=== PATIENT | male | born 1995 | race Caucasian/White ===

== ENCOUNTER 2020-01-27 15:24 | Inpatient (IN) | payer SELFPAY ==
[2020-01-27] MEDS ORDERED: Sodium Chloride 0.9% 10 ML Syringe FLUSH PRN (15:29)
[2020-01-27] MEDS ORDERED: Sodium Chloride 0.9% 2.5 ML Syringe FLUSH PRN (15:29)
[2020-01-27 15:56] LABS: ACETAMINOPHEN <2.0 ug/mL
[2020-01-27 16:01] LABS: BLOOD UREA NITROGEN,BUN 8 mg/dL (7.0-18.0); CARBON DIOXIDE,CO2 21.9 mmol/L (21.0-32.0); CHLORIDE,CL 109 mmol/L (98-107); GLUCOSE RANDOM 101 mg/dL (74-106); POTASSIUM,K 3.8 mmol/L (3.5-5.1); SODIUM,NA 147 mmol/L (136-148)
--- NOTE | 2020-01-27 16:31 | CT ---
Head CT Technique: Multiple axial sections through the brain were obtained. Intravenous contrast was not utilized. Findings: Ventricles along with basal cisterns and sulci over the convexities are within normal limits for the patient's age. No evidence of intracranial hemorrhage. No midline shift or mass-effect is seen. No abnormal parenchymal densities are seen. No evidence of intracranial hemorrhage. No midline shift or mass-effect is seen. 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 No acute paranasal sinus findings are seen. Mastoid sinus is also show nothing acute. No acute calvarial abnormality is appreciated. Impression: 1. Nothing acute is appreciated on noncontrast head CT exam. Diagnostic code #2 This report was dictated in MDT
--- NOTE | 2020-01-27 16:31 | CR ---
Chest: AP view of the chest was obtained. Comparison: No previous chest imaging is available for comparison. Heart size and mediastinum are normal. Lungs are clear. Bony structures shows minimal scoliosis within the spine. Impression: 1. Nothing acute is appreciated on frontal chest x-ray. Diagnostic code #2 This report was dictated in MDT
--- NOTE | 2020-01-27 17:21 | EDM.PDOC ---
ED HPI GENERAL MEDICAL PROBLEM - General Chief Complaint: Drug or Alcohol Abuse Stated Complaint: POSS OVERDOSE Time Seen by Provider: 01/27/20 15:27 Source of Information: Reports: EMS History Limitations: Reports: Altered Mental Status - History of Present Illness INITIAL COMMENTS - FREE TEXT/NARRATIVE: This patient is a 24-year-old male with no known medical history presenting with altered mental status. 911 was called by his significant other. She reports that he was drinking alcohol heavily earlier and made suicidal comments , but there was no report of any intentional ingestion other than ethanol. The significant other was concerned because the patient seemed to have slow or shallow breathing so she called the ambulance. She did chest compressions prior to EMS arrival. When paramedics arrived, the patient did have a pulse and was breathing normally, there is no report of any apnea or cyanosis from EMS. Blood sugar was reportedly normal. EMS noted mild tachycardia but otherwise normal vital signs. The patient was found lying on the floor in front of a chair. No report of any trauma. Patient arrives with altered mental status, unable to participate in the interview. Treatments PLATFORM POWER TECHNICIAN: Reports: IV/IO, Other (see below) Other Treatments PLATFORM POWER TECHNICIAN: NS 100mls - Related Data Allergies Allergy/AdvReac Type Severity Reaction Status Date / Time Unable to Assess Allergy Unverified 01/27/20 15:40 Home Meds: Home Meds . [Unable to Verify Home Med List] 01/27/20 [History] Past Medical History - Past Health History Medical/Surgical History: Denies Medical/Surgical History Social & Family History - Family History Family Medical History: Unobtainable ED ROS GENERAL - Review of Systems Review Of Systems: Unable To Obtain Reason Not Obtained: Due to altered mental status - Physical Exam Exam: See Below Text/Narrative:: Vital signs reviewed. Nursing notes reviewed. Constitutional: Sleepy but awakens to voice. Head: Normocephalic, atraumatic. Eyes: EOMI, conjunctiva normal, no discharge, no scleral icterus. No nystagmus. Ears, Nose, Throat: External ears and nose normal, moist oral mucosa. Cardiovascular: Tachycardic, 2+ radial pulse, capillary refill less than 2 seconds. Pulmonary: normal work of breathing, no accessory muscle use. CTA BL Abdomen/GI: Soft, nontender, nondistended, no guarding or rigidity, no masses. Musculoskeletal: No deformities. Integumentary: Appropriate color for ethnicity, warm, dry, no pallor or jaundice , no rash. Neurologic: Awakens to voice, slurred speech, one-word answers. Moving all extremities well but slowly. No gross neurologic deficits. No tremor. Psychiatric: Unable to assess EKG INTERPRETATION EKG Interpretation Comments: 12-Lead ECG Interpretation Acquired: 6:24 PM Rhythm: Sinus tachycardia Rate: 107/min Warner: Normal Intervals: Normal Ectopy: None Ischemic Changes: None apparent RV Strain: No obvious RV strain pattern. ST Segments/T-Waves: No notable changes Interpretation: Unremarkable Course - Vital Signs Text/Narrative:: 24-year-old male presenting with altered mental status. Patient mildly tachycardic, but [hemodynamically stable, afebrile], well- appearing, looks nontoxic. Differential diagnosis includes but is not limited to: Alcohol intoxication, illicit drug use, electrolyte disturbance, head trauma, stroke, intracranial hemorrhage, renal failure, uremia, psychosis, postictal state, sepsis, meningitis etc. On arrival the patient was markedly altered but protecting his airway. Immediately moved to a stretcher, monitor equipment attached. IV access was established and labs were sent. CBC shows mild thrombocytopenia. Normal INR. Venous blood gas shows elevated PO2 and slightly low CO2. Metabolic panel shows mild hypochloremia, normal creatinine. Normal hepatic markers. Normal troponin. Urinalysis is bland. Negative acetaminophen and salicylate levels. Negative drug screen. Ethanol is markedly elevated at 489. Lactate is normal. Patient was given a small fluid bolus. His mental status improved over several hours and he was able to engage in conversation. He denies attempting to kill himself and states that he is not suicidal and has no plan for self-harm. He admits to drinking alcohol earlier but denies any medication ingestion or illegal drug use. Patient was initially calm and cooperative and we plan to admit him to the hospital. He then became increasingly belligerent and agitated , attempting to remove his monitor equipment and his Giles catheter. We administered IV haloperidol which initially calmed him for a short while and then became increasingly agitated and attempted to leave again. Legal status hold was signed for severe intoxication, concern for cardiovascular emergency potentially life-threatening arrhythmia requiring bystander CPR, and suicidal statements. Patient was given a dose of IV ketamine with good relief and adequate calming. Patient remained in the ED through the end of my shift signed out in person to Dr. Guerrier awaiting admission to the ICU. Last Recorded V/S: Last Vital Signs Temp 36.4 C 01/27/20 15:26 Pulse 107 H 01/27/20 19:32 Resp 19 01/27/20 19:32 BP 129/75 01/27/20 19:32 Pulse Ox 94 L 01/27/20 19:32 - Orders/Labs/Meds Orders: Active Orders 24 hr Category Date Time Status Capnography Monitoring [RT End Tidal CO2 Monitoring] [ Care 01/27/20 15:31 Active RC] ASDIRECTED Initiate/Renew Non-Violent Restraints (All Ages) Q24H Care 01/27/20 19:00 Ordered Initiate/Renew Non-Violent Restraints (All Ages) Q24H Care 01/28/20 19:00 Ordered Nrsg Assess Restraint Init/Mon [Nrsg Assess Restraint Care 01/27/20 19:20 Active Init/Mon] [RC] ASDIRECTED Nrsg Assess Restraint Init/Mon [RC] Q15M Care 01/27/20 19:03 Active Suicide Precautions [RC] ASDIRECTED Care 01/27/20 15:45 Active Lactated Ringers [Ringers, Lactated] 1,000 ml Med 01/27/20 18:45 Active IV ASDIRECTED Sodium Chloride 0.9% [Normal Saline] Med 01/27/20 15:29 Active 10 ml IV ASDIRECTED PRN Sodium Chloride 0.9% [Saline Flush] Med 01/27/20 15:29 Active 10 ml FLUSH ASDIRECTED PRN Sodium Chloride 0.9% [Saline Flush] Med 01/27/20 15:29 Active 2.5 ml FLUSH ASDIRECTED PRN Peripheral IV Insertion Adult [OM.PC] Stat Oth 01/27/20 15:29 Ordered Medication Orders Lactated Ringer's (Ringers, Lactated) 1,000 mls @ 999 mls/hr IV ASDIRECTED MARTELL Last Admin: 01/27/20 18:33 Dose: 999 mls/hr Sodium Chloride (Saline Flush) 10 ml FLUSH ASDIRECTED PRN PRN Reason: Keep Vein Open Last Admin: 01/27/20 19:06 Dose: 10 ml Sodium Chloride (Saline Flush) 2.5 ml FLUSH ASDIRECTED PRN PRN Reason: Keep Vein Open Last Admin: 01/27/20 19:06 Dose: 2.5 ml Sodium Chloride (Normal Saline) 10 ml IV ASDIRECTED PRN PRN Reason: IV Use Labs: Laboratory Tests 01/27/20 01/27/20 01/27/20 Range/Units 15:20 15:20 15:29 WBC 5.57 (4.0-11.0) K/uL RBC 4.87 (4.50-5.90) M/uL Hgb 15.0 (13.0-17.0) g/dL Hct 44.1 (38.0-50.0) % MCV 90.6 (80.0-98.0) fL MCH 30.8 (27.0-32.0) pg MCHC 34.0 (31.0-37.0) g/dL RDW Std Deviation 43.2 (28.0-62.0) fl RDW Coeff of [place] 13 (11.0-15.0) % Plt Count 129 L (150-400) K/uL MPV 8.50 (7.40-12.00) fL Neut % (Auto) 44.8 L (48.0-80.0) % Lymph % (Auto) 40.6 H (16.0-40.0) % Ramsey % (Auto) 7.9 (0.0-15.0) % Eos % (Auto) 6.5 (0.0-7.0) % Baso % (Auto) 0.2 (0.0-1.5) % Neut # (Auto) 2.5 (1.4-5.7) K/uL Lymph # (Auto) 2.3 (0.6-2.4) K/uL Ramsey # (Auto) 0.4 (0.0-0.8) K/uL Eos # (Auto) 0.4 (0.0-0.7) K/uL Baso # (Auto) 0.0 (0.0-0.1) K/uL Nucleated RBC % 0.0 /100WBC Nucleated RBCs # 0 K/uL INR VBG pH (7.31-7.41) VBG pCO2 (35-45) mmHG VBG pO2 (30-40) mmHG VBG HCO3 (22-30) mEq/L VBG Total CO2 (41-51) mmol/L VBG Base Excess (-3.0-3.0) Lactate (0.20-2.00) mmol/L Sodium (136-148) mmol/L Potassium (3.5-5.1) mmol/L Chloride (98-107) mmol/L Carbon Dioxide (21.0-32.0) mmol/L BUN (7.0-18.0) mg/dL Creatinine (0.8-1.3) mg/dL Est Cr Clr Drug Dosing Estimated GFR (MDRD) ml/min Glucose (74-106) mg/dL Calcium (8.5-10.1) mg/dL Total Bilirubin (0.2-1.0) mg/dL AST (15-37) IU/L ALT (14-63) IU/L Alkaline Phosphatase (46-116) U/L Troponin I (0.000-0.056) ng/mL Total Protein (6.4-8.2) g/dL Albumin (3.4-5.0) g/dL Globulin (2.6-4.0) g/dL Albumin/Globulin Ratio (0.9-1.6) Urine Color YELLOW Urine Appearance CLEAR Urine pH 5.0 (5.0-8.0) Ur Specific [place] <= 1.005 (1.001-1.035) Urine Protein NEGATIVE (NEGATIVE) mg/dL Urine Glucose (UA) NEGATIVE (NEGATIVE) mg/dL Urine Ketones NEGATIVE (NEGATIVE) mg/dL Urine Occult Blood NEGATIVE (NEGATIVE) Urine Nitrite NEGATIVE (NEGATIVE) Urine Bilirubin NEGATIVE (NEGATIVE) Urine Urobilinogen 0.2 (<2.0) EU/dL Ur Leukocyte Esterase NEGATIVE (NEGATIVE) Salicylates (0-20) mg/dL Urine Opiates Screen NEGATIVE (NEGATIVE) Ur Oxycodone Screen NEGATIVE (NEGATIVE) Urine Methadone Screen NEGATIVE (NEGATIVE) Acetaminophen ug/mL Ur Barbiturates Screen NEGATIVE (NEGATIVE) Ur Phencyclidine Scrn NEGATIVE (NEGATIVE) Ur Amphetamine Screen NEGATIVE (NEGATIVE) U Methamphetamines Scrn NEGATIVE (NEGATIVE) U Benzodiazepines Scrn NEGATIVE (NEGATIVE) U Cocaine Metab Screen NEGATIVE (NEGATIVE) U Marijuana (THC) Screen NEGATIVE (NEGATIVE) Ethyl Alcohol mg/dL 01/27/20 01/27/20 01/27/20 Range/Units 15:29 15:29 15:29 WBC (4.0-11.0) K/uL RBC (4.50-5.90) M/uL Hgb (13.0-17.0) g/dL Hct (38.0-50.0) % MCV (80.0-98.0) fL MCH (27.0-32.0) pg MCHC (31.0-37.0) g/dL RDW Std Deviation (28.0-62.0) fl RDW Coeff of Jailene (11.0-15.0) % Plt Count (150-400) K/uL MPV (7.40-12.00) fL Neut % (Auto) (48.0-80.0) % Lymph % (Auto) (16.0-40.0) % Ramsey % (Auto) (0.0-15.0) % Eos % (Auto) (0.0-7.0) % Baso % (Auto) (0.0-1.5) % Neut # (Auto) (1.4-5.7) K/uL Lymph # (Auto) (0.6-2.4) K/uL Ramsey # (Auto) (0.0-0.8) K/uL Eos # (Auto) (0.0-0.7) K/uL Baso # (Auto) (0.0-0.1) K/uL Nucleated RBC % /100WBC Nucleated RBCs # K/uL INR 0.98 VBG pH (7.31-7.41) VBG pCO2 (35-45) mmHG VBG pO2 (30-40) mmHG VBG HCO3 (22-30) mEq/L VBG Total CO2 (41-51) mmol/L VBG Base Excess (-3.0-3.0) Lactate 2.0 (0.20-2.00) mmol/L Sodium 147 (136-148) mmol/L Potassium 3.8 (3.5-5.1) mmol/L Chloride 109 H (98-107) mmol/L Carbon Dioxide 21.9 (21.0-32.0) mmol/L BUN 8 (7.0-18.0) mg/dL Creatinine 0.9 (0.8-1.3) mg/dL Est Cr Clr Drug Dosing TNP Estimated GFR (MDRD) > 60.0 ml/min Glucose 101 (74-106) mg/dL Calcium 7.8 L (8.5-10.1) mg/dL Total Bilirubin 0.2 (0.2-1.0) mg/dL AST 28 (15-37) IU/L ALT 33 (14-63) IU/L Alkaline Phosphatase 102 (46-116) U/L Troponin I < 0.050 (0.000-0.056) ng/mL Total Protein 8.1 (6.4-8.2) g/dL Albumin 4.0 (3.4-5.0) g/dL Globulin 4.1 H (2.6-4.0) g/dL Albumin/Globulin Ratio 1.0 (0.9-1.6) Urine Color Urine Appearance Urine pH (5.0-8.0) Ur Specific [place] (1.001-1.035) Urine Protein (NEGATIVE) mg/dL Urine Glucose (UA) (NEGATIVE) mg/dL Urine Ketones (NEGATIVE) mg/dL Urine Occult Blood (NEGATIVE) Urine Nitrite (NEGATIVE) Urine Bilirubin (NEGATIVE) Urine Urobilinogen (<2.0) EU/dL Ur Leukocyte Esterase (NEGATIVE) Salicylates 1.5 (0-20) mg/dL Urine Opiates Screen (NEGATIVE) Ur Oxycodone Screen (NEGATIVE) Urine Methadone Screen (NEGATIVE) Acetaminophen <2.0 ug/mL Ur Barbiturates Screen (NEGATIVE) Ur Phencyclidine Scrn (NEGATIVE) Ur Amphetamine Screen (NEGATIVE) U Methamphetamines Scrn (NEGATIVE) U Benzodiazepines Scrn (NEGATIVE) U Cocaine Metab Screen (NEGATIVE) U Marijuana (THC) Screen (NEGATIVE) Ethyl Alcohol 489 mg/dL 01/27/20 01/27/20 Range/Units 15:29 17:37 WBC (4.0-11.0) K/uL RBC (4.50-5.90) M/uL Hgb (13.0-17.0) g/dL Hct (38.0-50.0) % MCV (80.0-98.0) fL MCH (27.0-32.0) pg MCHC (31.0-37.0) g/dL RDW Std Deviation (28.0-62.0) fl RDW Coeff of Jailene (11.0-15.0) % Plt Count (150-400) K/uL MPV (7.40-12.00) fL Neut % (Auto) (48.0-80.0) % Lymph % (Auto) (16.0-40.0) % Ramsey % (Auto) (0.0-15.0) % Eos % (Auto) (0.0-7.0) % Baso % (Auto) (0.0-1.5) % Neut # (Auto) (1.4-5.7) K/uL Lymph # (Auto) (0.6-2.4) K/uL Ramsey # (Auto) (0.0-0.8) K/uL Eos # (Auto) (0.0-0.7) K/uL Baso # (Auto) (0.0-0.1) K/uL Nucleated RBC % /100WBC Nucleated RBCs # K/uL INR VBG pH 7.36 (7.31-7.41) VBG pCO2 40 (35-45) mmHG VBG pO2 145 H (30-40) mmHG VBG HCO3 23 (22-30) mEq/L VBG Total CO2 20 L (41-51) mmol/L VBG Base Excess -2.6 (-3.0-3.0) Lactate 1.4 (0.20-2.00) mmol/L Sodium (136-148) mmol/L Potassium (3.5-5.1) mmol/L Chloride (98-107) mmol/L Carbon Dioxide (21.0-32.0) mmol/L BUN (7.0-18.0) mg/dL Creatinine (0.8-1.3) mg/dL Est Cr Clr Drug Dosing Estimated GFR (MDRD) ml/min Glucose (74-106) mg/dL Calcium (8.5-10.1) mg/dL Total Bilirubin (0.2-1.0) mg/dL AST (15-37) IU/L ALT (14-63) IU/L Alkaline Phosphatase (46-116) U/L Troponin I (0.000-0.056) ng/mL Total Protein (6.4-8.2) g/dL Albumin (3.4-5.0) g/dL Globulin (2.6-4.0) g/dL Albumin/Globulin Ratio (0.9-1.6) Urine Color Urine Appearance Urine pH (5.0-8.0) Ur Specific [place] (1.001-1.035) Urine Protein (NEGATIVE) mg/dL Urine Glucose (UA) (NEGATIVE) mg/dL Urine Ketones (NEGATIVE) mg/dL Urine Occult Blood (NEGATIVE) Urine Nitrite (NEGATIVE) Urine Bilirubin (NEGATIVE) Urine Urobilinogen (<2.0) EU/dL Ur Leukocyte Esterase (NEGATIVE) Salicylates (0-20) mg/dL Urine Opiates Screen (NEGATIVE) Ur Oxycodone Screen (NEGATIVE) Urine Methadone Screen (NEGATIVE) Acetaminophen ug/mL Ur Barbiturates Screen (NEGATIVE) Ur Phencyclidine Scrn (NEGATIVE) Ur Amphetamine Screen (NEGATIVE) U Methamphetamines Scrn (NEGATIVE) U Benzodiazepines Scrn (NEGATIVE) U Cocaine Metab Screen (NEGATIVE) U Marijuana (THC) Screen (NEGATIVE) Ethyl Alcohol mg/dL Meds: Medications Generic Name Dose Route Start Last Admin Trade Name Freq PRN Reason Stop Dose Admin Lactated Ringer's 1,000 mls @ 999 mls/hr 01/27/20 18:45 01/27/20 18:33 Ringers, Lactated IV 999 mls/hr ASDIRECTED MARTELL Administration Sodium Chloride 10 ml 01/27/20 15:29 01/27/20 19:06 Saline Flush FLUSH 10 ml ASDIRECTED PRN Administration Keep Vein Open Sodium Chloride 2.5 ml 01/27/20 15:29 01/27/20 19:06 Saline Flush FLUSH 2.5 ml ASDIRECTED PRN Administration Keep Vein Open Sodium Chloride 10 ml 01/27/20 15:29 Normal Saline IV ASDIRECTED PRN IV Use Discontinued Medications Generic Name Dose Route Start Last Admin Trade Name Freq PRN Reason Stop Dose Admin Haloperidol Lactate Confirm 01/27/20 18:20 01/27/20 18:39 Haldol Administered 01/27/20 18:21 Not Given Dose 10 mg .ROUTE .STK-MED ONE Haloperidol Lactate 10 mg 01/27/20 18:31 01/27/20 18:35 Haldol IM 01/27/20 18:32 10 mg ONETIME ONE Administration Ketamine HCl 50 mg 01/27/20 18:50 01/27/20 19:00 Ketalar IV 01/27/20 18:51 50 mg ONETIME ONE Administration Departure - Departure Time of Disposition: 19:00 Disposition: Refer to Observation Condition: Good Clinical Impression: Acute encephalopathy - Discharge Information Critical Care Note - Critical Care Note Total Time (mins): 60 Comments: Critical care time is exclusive of billable procedures and the time to perform these procedures. Critical care time was used to prevent vital system organ failure and deterioration. Critical care time includes bedside management and high-complexity decision making requiring my highest level of mental preparedness and attention. This includes reviewing the patient's chart and prior medical records, ordering and reviewing interpreting laboratory studies and imaging results, interpretation of vital signs and EKG, pulse oximetry, and discussion with the admitting team along with EMS and nursing staff. Critical care time for acute toxic encephalopathy severe agitation requiring multiple rounds of IV sedation with haloperidol and ketamine, serial neurologic reassessments, restraint application. Interpretation of labs and EKG and radiology studies. Discussions with EMS personnel, nursing, and hospitalist. Admission to intensive care unit for close monitoring. Sepsis Event Note - Evaluation Sepsis Screening Result: No Definite Risk - Focused Exam Vital Signs: Vital Signs Temp Pulse Resp BP Pulse Ox 01/27/20 19:10 121 H 19 127/74 95 01/27/20 19:00 110 H 20 124/71 96 01/27/20 16:15 94 14 121/78 97 01/27/20 16:00 93 14 117/78 97 01/27/20 15:45 92 14 116/79 97 01/27/20 15:26 36.4 C 112 H 13 127/85 95 Date Exam was Performed: 01/27/20 Time Exam was Performed: 19:40 - My Orders Last 24 Hours: My Active Orders 01/27/20 15:29 Sodium Chloride 0.9% [Normal Saline] 10 ml IV ASDIRECTED PRN Sodium Chloride 0.9% [Saline Flush] 10 ml FLUSH ASDIRECTED PRN Sodium Chloride 0.9% [Saline Flush] 2.5 ml FLUSH ASDIRECTED PRN Peripheral IV Insertion Adult [OM.PC] Stat 01/27/20 15:31 Capnography Monitoring [RT End Tidal CO2 Monitoring] [RC] ASDIRECTED 01/27/20 15:45 Suicide Precautions [RC] ASDIRECTED 01/27/20 18:45 Lactated Ringers [Ringers, Lactated] 1,000 ml IV ASDIRECTED 01/27/20 19:00 Initiate/Renew Non-Violent Restraints (All Ages) Q24H 01/27/20 19:03 Nrsg Assess Restraint Init/Mon [RC] Q15M 01/27/20 19:20 Nrsg Assess Restraint Init/Mon [Nrsg Assess Restraint Init/Mon] [RC] ASDIRECTED 01/28/20 19:00 Initiate/Renew Non-Violent Restraints (All Ages) Q24H - Assessment/Plan Last 24 Hours: My Active Orders 01/27/20 15:29 Sodium Chloride 0.9% [Normal Saline] 10 ml IV ASDIRECTED PRN Sodium Chloride 0.9% [Saline Flush] 10 ml FLUSH ASDIRECTED PRN Sodium Chloride 0.9% [Saline Flush] 2.5 ml FLUSH ASDIRECTED PRN Peripheral IV Insertion Adult [OM.PC] Stat 01/27/20 15:31 Capnography Monitoring [RT End Tidal CO2 Monitoring] [RC] ASDIRECTED 01/27/20 15:45 Suicide Precautions [RC] ASDIRECTED 01/27/20 18:45 Lactated Ringers [Ringers, Lactated] 1,000 ml IV ASDIRECTED 01/27/20 19:00 Initiate/Renew Non-Violent Restraints (All Ages) Q24H 01/27/20 19:03 Nrsg Assess Restraint Init/Mon [RC] Q15M 01/27/20 19:20 Nrsg Assess Restraint Init/Mon [Nrsg Assess Restraint Init/Mon] [RC] ASDIRECTED 01/28/20 19:00 Initiate/Renew Non-Violent Restraints (All Ages) Q24H
[2020-01-27] MEDS ORDERED: Haloperidol Lactate 5 MG/ML SDV ONE (18:20)
[2020-01-27] MEDS ORDERED: Haloperidol Lactate 5 MG/ML SDV IM ONE (18:31)
[2020-01-27] MEDS ORDERED: Lactated Ringers 1,000 ML IV SCH (18:45)
[2020-01-27] MEDS ORDERED: Ketamine 500 mg/10 ML MDV IV ONE (18:50)
[2020-01-27] MEDS ORDERED: Ondansetron 4 MG/2 ML SDV IVPUSH PRN (19:41)
[2020-01-27] MEDS ORDERED: Albuterol/Ipratropium 3.0-0.5 MG/3 ML Neb Soln NEB PRN (19:41)
[2020-01-27] MEDS ORDERED: MVI, Adult with Vitamin K 10 ML, Thiamine 100 MG, Folic Acid 1 MG in Sodium Chloride 0.... IV ONE ×4 (19:44)
[2020-01-27] MEDS ORDERED: Enoxaparin 40 MG/0.4 ML Syringe SUBCUT SCH (19:45)
[2020-01-27] MEDS ORDERED: LORazepam 2 MG/ML SDV IVPUSH PRN (19:45)
[2020-01-27] MEDS ORDERED: Haloperidol Lactate 5 MG/ML SDV IM PRN ×2 (19:46→19:49)
[2020-01-27] MEDS ORDERED: diphenhydrAMINE 50 MG/ML SDV IVPUSH PRN (19:49)
--- NOTE | 2020-01-27 19:50 | PCM.HP.2 ---
H&P History of Present Illness - General Date of Service: 01/27/20 Admit Problem/Dx: Admission Diagnosis/Problem Admission Diagnosis/Problem Acute encephalopathy - History of Present Illness Initial Comments - Free Text/Narative: Patient is a 24-year-old male with no known medical history presenting with altered mental status. Reportedly his GF called aftershe found him unresponsive. She reported to EMS that he was drinking alcohol heavily earlier and made suicidal comments, but there was no report of any intentional ingestion other than ethanol. GF performed chest compressions prior to EMS arrival due to concern of "shallow breathing" Its not clear if pulse was lost or not. When paramedics arrived, Patients pulse was normal with normal breathing, there is no report of any apnea or cyanosis from EMS. Blood sugar was reportedly normal. No report of any trauma. Patient arrives with altered mental status, most of his labs were relatively normal except for BAL was >400, CTscan head was unremarkable, CXR was unremarkable, EKG showed no ischemic changes. UDS was negative. Patient did become very agitated and wanted to leave in ER and was given ketamine for sedation and was committed by ER physician. 1 :1 was started. Patient was admitted to hospital for alcohol intoxication management. Patient was seen by me , by that time he was oriented and calm and he denied any SI or HI and stated he was depressed earlier due to passing of his family member and was grieving. He has no intention of hurting himself. - Related Data Allergies/Adverse Reactions: Allergies Allergy/AdvReac Type Severity Reaction Status Date / Time No Known Allergies Allergy Verified 01/28/20 01:20 Home Medications: Home Meds Folic Acid 1 mg PO DAILY 30 Days #30 tablet 01/28/20 [Rx] Thiamine [Vitamin B-1] 100 mg PO DAILY #30 tablet 01/28/20 [Rx] Past Medical History - Past Health History Medical/Surgical History: Denies Medical/Surgical History Social & Family History - Family History Family Medical History: Unobtainable H&P Review of Systems - Review of Systems: Review Of Systems: See Below General: Reports: Fatigue. Denies: Fever, Chills, Malaise, Weakness, Night Sweats HEENT: Denies: Dysphasia, Ear Pain Pulmonary: Denies: Shortness of Breath, Wheezing Cardiovascular: Denies: Chest Pain, Palpitations, Dyspnea on Exertion Gastrointestinal: Denies: Abdominal Pain, Anorexia, Black Stool Genitourinary: Denies: Dysuria, Frequency, Burning Musculoskeletal: Denies: Neck Pain, Shoulder Pain Skin: Denies: Cyanosis, Jaundice, Mottled Neurological: Reports: Confusion, Headache. Denies: Paresthesia, Seizure, Syncope, Tingling, Change in Speech Hematologic/Lymphatic: Denies: Anemia, Easy Bleeding Exam - Exam Exam: See Below - Vital Signs Vital Signs: Last Vital Signs Temp 36.2 C 01/27/20 19:42 Pulse 102 H 01/27/20 19:42 Resp 17 01/27/20 19:42 BP 113/61 01/27/20 19:42 Pulse Ox 93 L 01/27/20 19:42 Weight: 68.039 kg - Exam Quality Assessment: Supplemental Oxygen General: Alert, Oriented, Cooperative HEENT: Conjunctiva Clear Neck: Supple, Trachea Midline Lungs: Clear to Auscultation, Normal Respiratory Effort Cardiovascular: Regular Rate, Regular Rhythm, Normal S1 GI/Abdominal Exam: Normal Bowel Sounds, Soft, Non-Tender Peripheral Pulses: 3+: Dorsalis Pedis (L), Dorsalis Pedis (R) Skin: Warm, Dry Neurological: Cranial Nerves Intact, Normal Tone, Sensation Intact Neuro Extensive - Mental Status: Alert, Oriented x3 - Patient Data Lab Results Last 24 hrs: Laboratory Results - last 24 hr 01/27/20 01/27/20 01/27/20 Range/Units 15:20 15:20 15:29 WBC 5.57 (4.0-11.0) K/uL RBC 4.87 (4.50-5.90) M/uL Hgb 15.0 (13.0-17.0) g/dL Hct 44.1 (38.0-50.0) % MCV 90.6 (80.0-98.0) fL MCH 30.8 (27.0-32.0) pg MCHC 34.0 (31.0-37.0) g/dL RDW Std Deviation 43.2 (28.0-62.0) fl RDW Coeff of Jailene 13 (11.0-15.0) % Plt Count 129 L (150-400) K/uL MPV 8.50 (7.40-12.00) fL Neut % (Auto) 44.8 L (48.0-80.0) % Lymph % (Auto) 40.6 H (16.0-40.0) % Pitt % (Auto) 7.9 (0.0-15.0) % Eos % (Auto) 6.5 (0.0-7.0) % Baso % (Auto) 0.2 (0.0-1.5) % Neut # (Auto) 2.5 (1.4-5.7) K/uL Lymph # (Auto) 2.3 (0.6-2.4) K/uL Pitt # (Auto) 0.4 (0.0-0.8) K/uL Eos # (Auto) 0.4 (0.0-0.7) K/uL Baso # (Auto) 0.0 (0.0-0.1) K/uL Nucleated RBC % 0.0 /100WBC Nucleated RBCs # 0 K/uL INR VBG pH (7.31-7.41) VBG pCO2 (35-45) mmHG VBG pO2 (30-40) mmHG VBG HCO3 (22-30) mEq/L VBG Total CO2 (41-51) mmol/L VBG Base Excess (-3.0-3.0) Lactate (0.20-2.00) mmol/L Sodium (136-148) mmol/L Potassium (3.5-5.1) mmol/L Chloride (98-107) mmol/L Carbon Dioxide (21.0-32.0) mmol/L BUN (7.0-18.0) mg/dL Creatinine (0.8-1.3) mg/dL Est Cr Clr Drug Dosing Estimated GFR (MDRD) ml/min Glucose (74-106) mg/dL Calcium (8.5-10.1) mg/dL Total Bilirubin (0.2-1.0) mg/dL AST (15-37) IU/L ALT (14-63) IU/L Alkaline Phosphatase (46-116) U/L Troponin I (0.000-0.056) ng/mL Total Protein (6.4-8.2) g/dL Albumin (3.4-5.0) g/dL Globulin (2.6-4.0) g/dL Albumin/Globulin Ratio (0.9-1.6) Urine Color YELLOW Urine Appearance CLEAR Urine pH 5.0 (5.0-8.0) Ur Specific [place] <= 1.005 (1.001-1.035) Urine Protein NEGATIVE (NEGATIVE) mg/dL Urine Glucose (UA) NEGATIVE (NEGATIVE) mg/dL Urine Ketones NEGATIVE (NEGATIVE) mg/dL Urine Occult Blood NEGATIVE (NEGATIVE) Urine Nitrite NEGATIVE (NEGATIVE) Urine Bilirubin NEGATIVE (NEGATIVE) Urine Urobilinogen 0.2 (<2.0) EU/dL Ur Leukocyte Esterase NEGATIVE (NEGATIVE) Salicylates (0-20) mg/dL Urine Opiates Screen NEGATIVE (NEGATIVE) Ur Oxycodone Screen NEGATIVE (NEGATIVE) Urine Methadone Screen NEGATIVE (NEGATIVE) Acetaminophen ug/mL Ur Barbiturates Screen NEGATIVE (NEGATIVE) Ur Phencyclidine Scrn NEGATIVE (NEGATIVE) Ur Amphetamine Screen NEGATIVE (NEGATIVE) U Methamphetamines Scrn NEGATIVE (NEGATIVE) U Benzodiazepines Scrn NEGATIVE (NEGATIVE) U Cocaine Metab Screen NEGATIVE (NEGATIVE) U Marijuana (THC) Screen NEGATIVE (NEGATIVE) Ethyl Alcohol mg/dL 01/27/20 01/27/20 01/27/20 Range/Units 15:29 15:29 15:29 WBC (4.0-11.0) K/uL RBC (4.50-5.90) M/uL Hgb (13.0-17.0) g/dL Hct (38.0-50.0) % MCV (80.0-98.0) fL MCH (27.0-32.0) pg MCHC (31.0-37.0) g/dL RDW Std Deviation (28.0-62.0) fl RDW Coeff of Jailene (11.0-15.0) % Plt Count (150-400) K/uL MPV (7.40-12.00) fL Neut % (Auto) (48.0-80.0) % Lymph % (Auto) (16.0-40.0) % Pitt % (Auto) (0.0-15.0) % Eos % (Auto) (0.0-7.0) % Baso % (Auto) (0.0-1.5) % Neut # (Auto) (1.4-5.7) K/uL Lymph # (Auto) (0.6-2.4) K/uL Pitt # (Auto) (0.0-0.8) K/uL Eos # (Auto) (0.0-0.7) K/uL Baso # (Auto) (0.0-0.1) K/uL Nucleated RBC % /100WBC Nucleated RBCs # K/uL INR 0.98 VBG pH (7.31-7.41) VBG pCO2 (35-45) mmHG VBG pO2 (30-40) mmHG VBG HCO3 (22-30) mEq/L VBG Total CO2 (41-51) mmol/L VBG Base Excess (-3.0-3.0) Lactate 2.0 (0.20-2.00) mmol/L Sodium 147 (136-148) mmol/L Potassium 3.8 (3.5-5.1) mmol/L Chloride 109 H (98-107) mmol/L Carbon Dioxide 21.9 (21.0-32.0) mmol/L BUN 8 (7.0-18.0) mg/dL Creatinine 0.9 (0.8-1.3) mg/dL Est Cr Clr Drug Dosing TNP Estimated GFR (MDRD) > 60.0 ml/min Glucose 101 (74-106) mg/dL Calcium 7.8 L (8.5-10.1) mg/dL Total Bilirubin 0.2 (0.2-1.0) mg/dL AST 28 (15-37) IU/L ALT 33 (14-63) IU/L Alkaline Phosphatase 102 (46-116) U/L Troponin I < 0.050 (0.000-0.056) ng/mL Total Protein 8.1 (6.4-8.2) g/dL Albumin 4.0 (3.4-5.0) g/dL Globulin 4.1 H (2.6-4.0) g/dL Albumin/Globulin Ratio 1.0 (0.9-1.6) Urine Color Urine Appearance Urine pH (5.0-8.0) Ur Specific [place] (1.001-1.035) Urine Protein (NEGATIVE) mg/dL Urine Glucose (UA) (NEGATIVE) mg/dL Urine Ketones (NEGATIVE) mg/dL Urine Occult Blood (NEGATIVE) Urine Nitrite (NEGATIVE) Urine Bilirubin (NEGATIVE) Urine Urobilinogen (<2.0) EU/dL Ur Leukocyte Esterase (NEGATIVE) Salicylates 1.5 (0-20) mg/dL Urine Opiates Screen (NEGATIVE) Ur Oxycodone Screen (NEGATIVE) Urine Methadone Screen (NEGATIVE) Acetaminophen <2.0 ug/mL Ur Barbiturates Screen (NEGATIVE) Ur Phencyclidine Scrn (NEGATIVE) Ur Amphetamine Screen (NEGATIVE) U Methamphetamines Scrn (NEGATIVE) U Benzodiazepines Scrn (NEGATIVE) U Cocaine Metab Screen (NEGATIVE) U Marijuana (THC) Screen (NEGATIVE) Ethyl Alcohol 489 mg/dL 01/27/20 01/27/20 Range/Units 15:29 17:37 WBC (4.0-11.0) K/uL RBC (4.50-5.90) M/uL Hgb (13.0-17.0) g/dL Hct (38.0-50.0) % MCV (80.0-98.0) fL MCH (27.0-32.0) pg MCHC (31.0-37.0) g/dL RDW Std Deviation (28.0-62.0) fl RDW Coeff of Jailene (11.0-15.0) % Plt Count (150-400) K/uL MPV (7.40-12.00) fL Neut % (Auto) (48.0-80.0) % Lymph % (Auto) (16.0-40.0) % Pitt % (Auto) (0.0-15.0) % Eos % (Auto) (0.0-7.0) % Baso % (Auto) (0.0-1.5) % Neut # (Auto) (1.4-5.7) K/uL Lymph # (Auto) (0.6-2.4) K/uL Pitt # (Auto) (0.0-0.8) K/uL Eos # (Auto) (0.0-0.7) K/uL Baso # (Auto) (0.0-0.1) K/uL Nucleated RBC % /100WBC Nucleated RBCs # K/uL INR VBG pH 7.36 (7.31-7.41) VBG pCO2 40 (35-45) mmHG VBG pO2 145 H (30-40) mmHG VBG HCO3 23 (22-30) mEq/L VBG Total CO2 20 L (41-51) mmol/L VBG Base Excess -2.6 (-3.0-3.0) Lactate 1.4 (0.20-2.00) mmol/L Sodium (136-148) mmol/L Potassium (3.5-5.1) mmol/L Chloride (98-107) mmol/L Carbon Dioxide (21.0-32.0) mmol/L BUN (7.0-18.0) mg/dL Creatinine (0.8-1.3) mg/dL Est Cr Clr Drug Dosing Estimated GFR (MDRD) ml/min Glucose (74-106) mg/dL Calcium (8.5-10.1) mg/dL Total Bilirubin (0.2-1.0) mg/dL AST (15-37) IU/L ALT (14-63) IU/L Alkaline Phosphatase (46-116) U/L Troponin I (0.000-0.056) ng/mL Total Protein (6.4-8.2) g/dL Albumin (3.4-5.0) g/dL Globulin (2.6-4.0) g/dL Albumin/Globulin Ratio (0.9-1.6) Urine Color Urine Appearance Urine pH (5.0-8.0) Ur Specific [place] (1.001-1.035) Urine Protein (NEGATIVE) mg/dL Urine Glucose (UA) (NEGATIVE) mg/dL Urine Ketones (NEGATIVE) mg/dL Urine Occult Blood (NEGATIVE) Urine Nitrite (NEGATIVE) Urine Bilirubin (NEGATIVE) Urine Urobilinogen (<2.0) EU/dL Ur Leukocyte Esterase (NEGATIVE) Salicylates (0-20) mg/dL Urine Opiates Screen (NEGATIVE) Ur Oxycodone Screen (NEGATIVE) Urine Methadone Screen (NEGATIVE) Acetaminophen ug/mL Ur Barbiturates Screen (NEGATIVE) Ur Phencyclidine Scrn (NEGATIVE) Ur Amphetamine Screen (NEGATIVE) U Methamphetamines Scrn (NEGATIVE) U Benzodiazepines Scrn (NEGATIVE) U Cocaine Metab Screen (NEGATIVE) U Marijuana (THC) Screen (NEGATIVE) Ethyl Alcohol mg/dL Result Diagrams: 01/28/20 05:55 01/28/20 05:55 Sepsis Event Note - Evaluation Sepsis Screening Result: No Definite Risk - Focused Exam Vital Signs: Vital Signs Temp Pulse Resp BP Pulse Ox 01/27/20 19:42 36.2 C 102 H 17 113/61 93 L 01/27/20 19:32 107 H 19 129/75 94 L 01/27/20 19:22 116 H 20 131/77 94 L 01/27/20 19:10 121 H 19 127/74 95 01/27/20 19:00 110 H 20 124/71 96 01/27/20 16:15 94 14 121/78 97 01/27/20 16:00 93 14 117/78 97 01/27/20 15:45 92 14 116/79 97 01/27/20 15:26 36.4 C 112 H 13 127/85 95 Date Exam was Performed: 01/29/20 Time Exam was Performed: 23:40 - Problem List (1) Alcohol intoxication SNOMED Code(s): 01312657 ICD Code: F10.929 - ALCOHOL USE, UNSPECIFIED WITH INTOXICATION, UNSPECIFIED Status: Acute (2) AMS (altered mental status) SNOMED Code(s): 745305683 ICD Code: R41.82 - ALTERED MENTAL STATUS, UNSPECIFIED Status: Acute Problem List Initiated/Reviewed/Updated: Yes Orders Last 24hrs: Active Orders 24 hr Category Date Time Status Admission Status [Patient Status] [ADT] Routine ADT 01/27/20 19:22 Active Ambulate [RC] ASDIRECTED Care 01/27/20 19:41 Ordered Antiembolic Devices [RC] PER UNIT ROUTINE Care 01/27/20 19:43 Ordered Capnography Monitoring [RT End Tidal CO2 Monitoring] [ Care 01/27/20 15:31 Active RC] ASDIRECTED Initiate/Renew Non-Violent Restraints (All Ages) Q24H Care 01/27/20 19:00 Ordered Initiate/Renew Non-Violent Restraints (All Ages) Q24H Care 01/28/20 19:00 Ordered Nrsg Assess Restraint Init/Mon [Nrsg Assess Restraint Care 01/27/20 19:20 Active Init/Mon] [RC] ASDIRECTED Nrsg Assess Restraint Init/Mon [RC] Q15M Care 01/27/20 19:03 Active Oxygen Therapy [RC] PRN Care 01/27/20 19:41 Ordered RT Aerosol Therapy [RC] ASDIRECTED Care 01/27/20 19:43 Ordered Suicide Precautions [RC] ASDIRECTED Care 01/27/20 15:45 Active VTE/DVT Education [RC] PER UNIT ROUTINE Care 01/27/20 19:41 Ordered Vital Signs [RC] Q2H Care 01/27/20 19:41 Ordered Nothing per Oral Now Diet [DIET] Diet 01/27/20 Dinner Ordered Albuterol/Ipratropium [DuoNeb 3.0-0.5 MG/3 ML] Med 01/27/20 19:41 Ordered 3 ml NEB Q4HRRT PRN Enoxaparin [Lovenox] Med 01/27/20 19:45 Ordered 40 mg SUBCUT Q24H Haloperidol Lactate [Haldol] Med 01/27/20 19:49 Ordered 5 mg IM Q8H PRN LORazepam [Ativan] Med 01/27/20 19:45 Ordered See Protocol IVPUSH Q4H PRN Lactated Ringers @ 125 MLS/HR(1000ml) Med 01/27/20 19:45 Ordered Lactated Ringers [Ringers, Lactated] 1,000 ml IV ASDIRECTED Lactated Ringers [Ringers, Lactated] 1,000 ml Med 01/27/20 18:45 Active IV ASDIRECTED MVI, Adult with Vitamin K [Infuvite Adult] 10 ml Med 01/27/20 19:44 Ordered Thiamine [Vitamin B-1] 100 mg Folic Acid 1 mg Sodium Chloride 0.9% [Normal Saline] 1,000 ml IV ONETIME Ondansetron [Zofran] Med 01/27/20 19:41 Ordered 4 mg IVPUSH Q4H PRN Pantoprazole [ProTONIX IV] Med 01/27/20 21:00 Ordered 40 mg IV Q12HR Sodium Chloride 0.9% [Normal Saline] Med 01/27/20 15:29 Active 10 ml IV ASDIRECTED PRN Sodium Chloride 0.9% [Saline Flush] Med 01/27/20 15:29 Active 10 ml FLUSH ASDIRECTED PRN Sodium Chloride 0.9% [Saline Flush] Med 01/27/20 15:29 Active 2.5 ml FLUSH ASDIRECTED PRN diphenhydrAMINE [Benadryl] Med 01/27/20 19:49 Ordered 50 mg IVPUSH Q8H PRN Peripheral IV Insertion Adult [OM.PC] Stat Oth 01/27/20 15:29 Ordered Sequential Compression Device [OM.PC] Per Unit Routine Oth 01/27/20 19:42 Ordered Medication Orders Albuterol/Ipratropium (Duoneb 3.0-0.5 Mg/3 Ml) 3 ml NEB Q4HRRT PRN PRN Reason: Shortness Of Breath/wheezing Diphenhydramine HCl (Benadryl) 50 mg IVPUSH Q8H PRN PRN Reason: Agitation Enoxaparin Sodium (Lovenox) 40 mg SUBCUT Q24H MARTELL Haloperidol Lactate (Haldol) 5 mg IM Q8H PRN PRN Reason: Agitation Lactated Ringer's (Ringers, Lactated) 1,000 mls @ 999 mls/hr IV ASDIRECTED [facility] Last Admin: 01/27/20 18:33 Dose: 999 mls/hr Lactated Ringer's (Ringers, Lactated) 1,000 mls @ 125 mls/hr IV ASDIRECTED [facility] Multivitamins/Minerals 10 ml/Thiamine HCl 100 mg/ Folic Acid 1 mg/ Sodium Chloride 1,011.2 mls @ 999 mls/hr IV ONETIME ONE Stop: 01/27/20 20:44 Lorazepam (Ativan) 0 mg IVPUSH Q4H PRN; Protocol PRN Reason: Withdrawal Symptoms Ondansetron HCl (Zofran) 4 mg IVPUSH Q4H PRN PRN Reason: Nausea/Vomiting Pantoprazole Sodium (Protonix Iv) 40 mg IV Q12HR [facility] Sodium Chloride (Saline Flush) 10 ml FLUSH ASDIRECTED PRN PRN Reason: Keep Vein Open Last Admin: 01/27/20 19:06 Dose: 10 ml Sodium Chloride (Saline Flush) 2.5 ml FLUSH ASDIRECTED PRN PRN Reason: Keep Vein Open Last Admin: 01/27/20 19:06 Dose: 2.5 ml Sodium Chloride (Normal Saline) 10 ml IV ASDIRECTED PRN PRN Reason: IV Use Assessment/Plan Comment:: 24 y/o M admitted for alcohol intoxication Admit to ICU for close monitoring Start IV fluids for hydration Start thiamine and folic acid Ativan per [facility] protocol Monitor and replete electrolytes Cont 1:1 for now , denied SI/HI Haldol PRN agitation along with Benadryl Lovenox for DVT ppx Monitor platelets, watch for bleeding PPI for GI ppx
[2020-01-27] MEDS: Lactated Ringers 1,000 ML IV SCH (21:42)
[2020-01-27] MEDS: Pantoprazole 40 MG Vial IV SCH (21:45)
[2020-01-27] MEDS: Sodium Chloride 0.9% 10 ML SDV IV PRN (21:45)
--- NOTE | 2020-01-27 22:42 | PN ---
THC Physician - Brief Progress [id number]/06/2020 22:25[facility] Shashi wills, MARGARITA - RICHIE (MICHAEL) - ANI YOUNG.Date of Service 01/27/2020 22:25HPI/Events of Note 24 YEAR OLD male admitted with alcohol abuse and suicidal ideation,was given haloperidol and k etamine in EDon camera awake but gesxhsZD587/MIN,BP108/66,SPO2 94%RA,PI89Iucegxs level 489platelet [address] no acute changesChest xray no acUTE changesplan:-1:1 observation(discussed with RN as patien t had suicidal ideation)-watch for alcohol withdrawal-correct electrolytes as neededDVT/Stress ulcer prophylaxsisInterventions Major-Delirium, psychosis, severe agitation - evaluation and managementInt ermediate-Thrombocytopenia - evaluation and management
[2020-01-28] MEDS: Lactated Ringers 1,000 ML IV SCH (05:47)
[2020-01-28 06:54] LABS: BLOOD UREA NITROGEN,BUN 7 mg/dL (7.0-18.0); CARBON DIOXIDE,CO2 25.4 mmol/L (21.0-32.0); CHLORIDE,CL 108 mmol/L (98-107); GLUCOSE RANDOM 84 mg/dL (74-106); POTASSIUM,K 3.4 mmol/L (3.5-5.1); SODIUM,NA 145 mmol/L (136-148)
[2020-01-28] MEDS ORDERED: Magnesium Sulfate (4.06 MEQ/ML) 1 GM/2 ML SDV IM ONE (07:43)
--- NOTE | 2020-01-28 07:50 | PN ---
THC Physician - Brief Progress [id number]/07/2020 07:36[facility] Shashi wills [place] - RICHIE [facility] - ANI YOUNGDate of Service 01/28/2020 07:36HPI/Events of Note potassium 3.4Mag 1.3plan:potassium chloride 40 meq orally BID for 1 dayMagnesium sulfate 1gm IV PB once over 120minsInterventions Major-Electrolyte abnormality - evaluation and managementElectronic ally Signed by: Tawanna LAGUNA) on 01/28/2020 07:50
[2020-01-28] MEDS ORDERED: Magnesium Sulfate/Water 1 GM in Premix Bag 1 BAG IV ONE (08:00)
[2020-01-28] MEDS: Sodium Chloride 0.9% 10 ML SDV IV PRN (08:45)
[2020-01-28] MEDS: Pantoprazole 40 MG Vial IV SCH (08:45)
[2020-01-28] MEDS ORDERED: Potassium Chloride 20 MEQ Tab.ER PO SCH (09:00)
[2020-01-28] MEDS ORDERED: Thiamine 100 MG Tab PO SCH (09:00)
[2020-01-28] MEDS ORDERED: Folic Acid 1 MG Tab PO SCH (09:00)
--- NOTE | 2020-01-28 10:57 | PCM.DCSUM1 ---
Discharge Summary - Hospital Course Diagnosis: Stroke: No - Discharge Data Discharge Date: 01/28/20 Discharge Disposition: Home, Self-Care 01 Condition: Stable - Referral to Home Health Primary Care Physician: PCP None - Discharge Diagnosis/Problem(s) (1) Alcohol intoxication SNOMED Code(s): 05947017 ICD Code: F10.929 - ALCOHOL USE, UNSPECIFIED WITH INTOXICATION, UNSPECIFIED Status: Acute Current Visit: Yes (2) AMS (altered mental status) SNOMED Code(s): 072747310 ICD Code: R41.82 - ALTERED MENTAL STATUS, UNSPECIFIED Status: Acute Current Visit: Yes - Discharge Plan *PRESCRIPTION DRUG MONITORING PROGRAM REVIEWED*: Not Applicable *COPY OF PRESCRIPTION DRUG MONITORING REPORT IN PATIENT [place]: Not Applicable Prescriptions/Med Rec: Folic Acid 1 mg PO DAILY 30 Days #30 tablet Thiamine [Vitamin B-1] 100 mg PO DAILY #30 tablet Home Medications: Home Meds Folic Acid 1 mg PO DAILY 30 Days #30 tablet 01/28/20 [Rx] Thiamine [Vitamin B-1] 100 mg PO DAILY #30 tablet 01/28/20 [Rx] Forms: ED Department Discharge Referrals: PCP,None [Primary Care Provider] - - Patient Data Vitals - Most Recent: Last Vital Signs Temp 36.5 C 01/28/20 08:00 Pulse 102 H 01/27/20 19:52 Resp 16 01/28/20 09:00 BP 127/76 01/28/20 09:00 Pulse Ox 92 L 01/28/20 09:00 Weight - Most Recent: 74.072 kg I&O - Last 24 hours: Intake & Output 01/27/20 01/28/20 01/28/20 22:59 06:59 14:59 Intake Total 1011 1450 25 Output Total 1825 Balance 1011 -375 25 Lab Results - Last 24 hrs: Laboratory Results - last 24 hr 01/27/20 01/27/20 01/27/20 Range/Units 15:20 15:20 15:29 WBC 5.57 (4.0-11.0) K/uL RBC 4.87 (4.50-5.90) M/uL Hgb 15.0 (13.0-17.0) g/dL Hct 44.1 (38.0-50.0) % MCV 90.6 (80.0-98.0) fL MCH 30.8 (27.0-32.0) pg MCHC 34.0 (31.0-37.0) g/dL RDW Std Deviation 43.2 (28.0-62.0) fl RDW Coeff of Jailene 13 (11.0-15.0) % Plt Count 129 L (150-400) K/uL MPV 8.50 (7.40-12.00) fL Neut % (Auto) 44.8 L (48.0-80.0) % Lymph % (Auto) 40.6 H (16.0-40.0) % [place] % (Auto) 7.9 (0.0-15.0) % Eos % (Auto) 6.5 (0.0-7.0) % Baso % (Auto) 0.2 (0.0-1.5) % Neut # (Auto) 2.5 (1.4-5.7) K/uL Lymph # (Auto) 2.3 (0.6-2.4) K/uL [place] # (Auto) 0.4 (0.0-0.8) K/uL Eos # (Auto) 0.4 (0.0-0.7) K/uL Baso # (Auto) 0.0 (0.0-0.1) K/uL Nucleated RBC % 0.0 /100WBC Nucleated RBCs # 0 K/uL INR VBG pH (7.31-7.41) VBG pCO2 (35-45) mmHG VBG pO2 (30-40) mmHG VBG HCO3 (22-30) mEq/L VBG Total CO2 (41-51) mmol/L VBG Base Excess (-3.0-3.0) Lactate (0.20-2.00) mmol/L Sodium (136-148) mmol/L Potassium (3.5-5.1) mmol/L Chloride (98-107) mmol/L Carbon Dioxide (21.0-32.0) mmol/L BUN (7.0-18.0) mg/dL Creatinine (0.8-1.3) mg/dL Est Cr Clr Drug Dosing Estimated GFR (MDRD) ml/min Glucose (74-106) mg/dL Calcium (8.5-10.1) mg/dL Phosphorus (2.6-4.7) mg/dL Magnesium (1.8-2.4) mg/dL Total Bilirubin (0.2-1.0) mg/dL AST (15-37) IU/L ALT (14-63) IU/L Alkaline Phosphatase (46-116) U/L Troponin I (0.000-0.056) ng/mL Total Protein (6.4-8.2) g/dL Albumin (3.4-5.0) g/dL Globulin (2.6-4.0) g/dL Albumin/Globulin Ratio (0.9-1.6) Urine Color YELLOW Urine Appearance CLEAR Urine pH 5.0 (5.0-8.0) Ur Specific [place] <= 1.005 (1.001-1.035) Urine Protein NEGATIVE (NEGATIVE) mg/dL Urine Glucose (UA) NEGATIVE (NEGATIVE) mg/dL Urine Ketones NEGATIVE (NEGATIVE) mg/dL Urine Occult Blood NEGATIVE (NEGATIVE) Urine Nitrite NEGATIVE (NEGATIVE) Urine Bilirubin NEGATIVE (NEGATIVE) Urine Urobilinogen 0.2 (<2.0) EU/dL Ur Leukocyte Esterase NEGATIVE (NEGATIVE) Salicylates (0-20) mg/dL Urine Opiates Screen NEGATIVE (NEGATIVE) Ur Oxycodone Screen NEGATIVE (NEGATIVE) Urine Methadone Screen NEGATIVE (NEGATIVE) Acetaminophen ug/mL Ur Barbiturates Screen NEGATIVE (NEGATIVE) Ur Phencyclidine Scrn NEGATIVE (NEGATIVE) Ur Amphetamine Screen NEGATIVE (NEGATIVE) U Methamphetamines Scrn NEGATIVE (NEGATIVE) U Benzodiazepines Scrn NEGATIVE (NEGATIVE) U Cocaine Metab Screen NEGATIVE (NEGATIVE) U Marijuana (THC) Screen NEGATIVE (NEGATIVE) Ethyl Alcohol mg/dL 01/27/20 01/27/20 01/27/20 Range/Units 15:29 15:29 15:29 WBC (4.0-11.0) K/uL RBC (4.50-5.90) M/uL Hgb (13.0-17.0) g/dL Hct (38.0-50.0) % MCV (80.0-98.0) fL MCH (27.0-32.0) pg MCHC (31.0-37.0) g/dL RDW Std Deviation (28.0-62.0) fl RDW Coeff of Jailene (11.0-15.0) % Plt Count (150-400) K/uL MPV (7.40-12.00) fL Neut % (Auto) (48.0-80.0) % Lymph % (Auto) (16.0-40.0) % [place] % (Auto) (0.0-15.0) % Eos % (Auto) (0.0-7.0) % Baso % (Auto) (0.0-1.5) % Neut # (Auto) (1.4-5.7) K/uL Lymph # (Auto) (0.6-2.4) K/uL [place] # (Auto) (0.0-0.8) K/uL Eos # (Auto) (0.0-0.7) K/uL Baso # (Auto) (0.0-0.1) K/uL Nucleated RBC % /100WBC Nucleated RBCs # K/uL INR 0.98 VBG pH (7.31-7.41) VBG pCO2 (35-45) mmHG VBG pO2 (30-40) mmHG VBG HCO3 (22-30) mEq/L VBG Total CO2 (41-51) mmol/L VBG Base Excess (-3.0-3.0) Lactate 2.0 (0.20-2.00) mmol/L Sodium 147 (136-148) mmol/L Potassium 3.8 (3.5-5.1) mmol/L Chloride 109 H (98-107) mmol/L Carbon Dioxide 21.9 (21.0-32.0) mmol/L BUN 8 (7.0-18.0) mg/dL Creatinine 0.9 (0.8-1.3) mg/dL Est Cr Clr Drug Dosing TNP Estimated GFR (MDRD) > 60.0 ml/min Glucose 101 (74-106) mg/dL Calcium 7.8 L (8.5-10.1) mg/dL Phosphorus (2.6-4.7) mg/dL Magnesium (1.8-2.4) mg/dL Total Bilirubin 0.2 (0.2-1.0) mg/dL AST 28 (15-37) IU/L ALT 33 (14-63) IU/L Alkaline Phosphatase 102 (46-116) U/L Troponin I < 0.050 (0.000-0.056) ng/mL Total Protein 8.1 (6.4-8.2) g/dL Albumin 4.0 (3.4-5.0) g/dL Globulin 4.1 H (2.6-4.0) g/dL Albumin/Globulin Ratio 1.0 (0.9-1.6) Urine Color Urine Appearance Urine pH (5.0-8.0) Ur Specific [place] (1.001-1.035) Urine Protein (NEGATIVE) mg/dL Urine Glucose (UA) (NEGATIVE) mg/dL Urine Ketones (NEGATIVE) mg/dL Urine Occult Blood (NEGATIVE) Urine Nitrite (NEGATIVE) Urine Bilirubin (NEGATIVE) Urine Urobilinogen (<2.0) EU/dL Ur Leukocyte Esterase (NEGATIVE) Salicylates 1.5 (0-20) mg/dL Urine Opiates Screen (NEGATIVE) Ur Oxycodone Screen (NEGATIVE) Urine Methadone Screen (NEGATIVE) Acetaminophen <2.0 ug/mL Ur Barbiturates Screen (NEGATIVE) Ur Phencyclidine Scrn (NEGATIVE) Ur Amphetamine Screen (NEGATIVE) U Methamphetamines Scrn (NEGATIVE) U Benzodiazepines Scrn (NEGATIVE) U Cocaine Metab Screen (NEGATIVE) U Marijuana (THC) Screen (NEGATIVE) Ethyl Alcohol 489 mg/dL 01/27/20 01/27/20 01/27/20 Range/Units 15:29 17:37 20:23 WBC (4.0-11.0) K/uL RBC (4.50-5.90) M/uL Hgb (13.0-17.0) g/dL Hct (38.0-50.0) % MCV (80.0-98.0) fL MCH (27.0-32.0) pg MCHC (31.0-37.0) g/dL RDW Std Deviation (28.0-62.0) fl RDW Coeff of Jailene (11.0-15.0) % Plt Count (150-400) K/uL MPV (7.40-12.00) fL Neut % (Auto) (48.0-80.0) % Lymph % (Auto) (16.0-40.0) % [place] % (Auto) (0.0-15.0) % Eos % (Auto) (0.0-7.0) % Baso % (Auto) (0.0-1.5) % Neut # (Auto) (1.4-5.7) K/uL Lymph # (Auto) (0.6-2.4) K/uL [place] # (Auto) (0.0-0.8) K/uL Eos # (Auto) (0.0-0.7) K/uL Baso # (Auto) (0.0-0.1) K/uL Nucleated RBC % /100WBC Nucleated RBCs # K/uL INR VBG pH 7.36 (7.31-7.41) VBG pCO2 40 (35-45) mmHG VBG pO2 145 H (30-40) mmHG VBG HCO3 23 (22-30) mEq/L VBG Total CO2 20 L (41-51) mmol/L VBG Base Excess -2.6 (-3.0-3.0) Lactate 1.4 (0.20-2.00) mmol/L Sodium (136-148) mmol/L Potassium (3.5-5.1) mmol/L Chloride (98-107) mmol/L Carbon Dioxide (21.0-32.0) mmol/L BUN (7.0-18.0) mg/dL Creatinine (0.8-1.3) mg/dL Est Cr Clr Drug Dosing Estimated GFR (MDRD) ml/min Glucose (74-106) mg/dL Calcium (8.5-10.1) mg/dL Phosphorus (2.6-4.7) mg/dL Magnesium (1.8-2.4) mg/dL Total Bilirubin (0.2-1.0) mg/dL AST (15-37) IU/L ALT (14-63) IU/L Alkaline Phosphatase (46-116) U/L Troponin I < 0.050 (0.000-0.056) ng/mL Total Protein (6.4-8.2) g/dL Albumin (3.4-5.0) g/dL Globulin (2.6-4.0) g/dL Albumin/Globulin Ratio (0.9-1.6) Urine Color Urine Appearance Urine pH (5.0-8.0) Ur Specific [place] (1.001-1.035) Urine Protein (NEGATIVE) mg/dL Urine Glucose (UA) (NEGATIVE) mg/dL Urine Ketones (NEGATIVE) mg/dL Urine Occult Blood (NEGATIVE) Urine Nitrite (NEGATIVE) Urine Bilirubin (NEGATIVE) Urine Urobilinogen (<2.0) EU/dL Ur Leukocyte Esterase (NEGATIVE) Salicylates (0-20) mg/dL Urine Opiates Screen (NEGATIVE) Ur Oxycodone Screen (NEGATIVE) Urine Methadone Screen (NEGATIVE) Acetaminophen ug/mL Ur Barbiturates Screen (NEGATIVE) Ur Phencyclidine Scrn (NEGATIVE) Ur Amphetamine Screen (NEGATIVE) U Methamphetamines Scrn (NEGATIVE) U Benzodiazepines Scrn (NEGATIVE) U Cocaine Metab Screen (NEGATIVE) U Marijuana (THC) Screen (NEGATIVE) Ethyl Alcohol mg/dL 01/28/20 01/28/20 Range/Units 05:55 05:55 WBC 6.01 (4.0-11.0) K/uL RBC 4.37 L (4.50-5.90) M/uL Hgb 13.3 (13.0-17.0) g/dL Hct 39.6 (38.0-50.0) % MCV 90.6 (80.0-98.0) fL MCH 30.4 (27.0-32.0) pg MCHC 33.6 (31.0-37.0) g/dL RDW Std Deviation 43.0 (28.0-62.0) fl RDW Coeff of Jailene 13 (11.0-15.0) % Plt Count 98 L (150-400) K/uL MPV 8.80 (7.40-12.00) fL Neut % (Auto) 59.7 (48.0-80.0) % Lymph % (Auto) 26.8 (16.0-40.0) % [place] % (Auto) 9.3 (0.0-15.0) % Eos % (Auto) 4.0 (0.0-7.0) % Baso % (Auto) 0.2 (0.0-1.5) % Neut # (Auto) 3.6 (1.4-5.7) K/uL Lymph # (Auto) 1.6 (0.6-2.4) K/uL [place] # (Auto) 0.6 (0.0-0.8) K/uL Eos # (Auto) 0.2 (0.0-0.7) K/uL Baso # (Auto) 0.0 (0.0-0.1) K/uL Nucleated RBC % 0.0 /100WBC Nucleated RBCs # 0 K/uL INR VBG pH (7.31-7.41) VBG pCO2 (35-45) mmHG VBG pO2 (30-40) mmHG VBG HCO3 (22-30) mEq/L VBG Total CO2 (41-51) mmol/L VBG Base Excess (-3.0-3.0) Lactate (0.20-2.00) mmol/L Sodium 145 (136-148) mmol/L Potassium 3.4 L (3.5-5.1) mmol/L Chloride 108 H (98-107) mmol/L Carbon Dioxide 25.4 (21.0-32.0) mmol/L BUN 7 (7.0-18.0) mg/dL Creatinine 0.7 L (0.8-1.3) mg/dL Est Cr Clr Drug Dosing 156.07 Estimated GFR (MDRD) > 60.0 ml/min Glucose 84 (74-106) mg/dL Calcium 7.6 L (8.5-10.1) mg/dL Phosphorus 2.7 (2.6-4.7) mg/dL Magnesium 1.3 L (1.8-2.4) mg/dL Total Bilirubin (0.2-1.0) mg/dL AST (15-37) IU/L ALT (14-63) IU/L Alkaline Phosphatase (46-116) U/L Troponin I (0.000-0.056) ng/mL Total Protein (6.4-8.2) g/dL Albumin (3.4-5.0) g/dL Globulin (2.6-4.0) g/dL Albumin/Globulin Ratio (0.9-1.6) Urine Color Urine Appearance Urine pH (5.0-8.0) Ur Specific [place] (1.001-1.035) Urine Protein (NEGATIVE) mg/dL Urine Glucose (UA) (NEGATIVE) mg/dL Urine Ketones (NEGATIVE) mg/dL Urine Occult Blood (NEGATIVE) Urine Nitrite (NEGATIVE) Urine Bilirubin (NEGATIVE) Urine Urobilinogen (<2.0) EU/dL Ur Leukocyte Esterase (NEGATIVE) Salicylates (0-20) mg/dL Urine Opiates Screen (NEGATIVE) Ur Oxycodone Screen (NEGATIVE) Urine Methadone Screen (NEGATIVE) Acetaminophen ug/mL Ur Barbiturates Screen (NEGATIVE) Ur Phencyclidine Scrn (NEGATIVE) Ur Amphetamine Screen (NEGATIVE) U Methamphetamines Scrn (NEGATIVE) U Benzodiazepines Scrn (NEGATIVE) U Cocaine Metab Screen (NEGATIVE) U Marijuana (THC) Screen (NEGATIVE) Ethyl Alcohol mg/dL Med Orders - Current: Current Medications Albuterol/Ipratropium (Duoneb 3.0-0.5 Mg/3 Ml) 3 ml NEB Q4HRRT PRN PRN Reason: Shortness Of Breath/wheezing Diphenhydramine HCl (Benadryl) 50 mg IVPUSH Q8H PRN PRN Reason: Agitation Enoxaparin Sodium (Lovenox) 40 mg SUBCUT Q24H [facility] Last Admin: 01/27/20 20:28 Dose: 40 mg Folic Acid (Folic Acid) 1 mg PO DAILY [facility] Last Admin: 01/28/20 08:46 Dose: 1 mg Haloperidol Lactate (Haldol) 5 mg IM Q8H PRN PRN Reason: Agitation Lactated Ringer's (Ringers, Lactated) 1,000 mls @ 125 mls/hr IV ASDIRECTED [facility] Last Admin: 01/28/20 05:47 Dose: 125 mls/hr Lorazepam (Ativan) 0 mg IVPUSH Q4H PRN; Protocol PRN Reason: Withdrawal Symptoms Ondansetron HCl (Zofran) 4 mg IVPUSH Q4H PRN PRN Reason: Nausea/Vomiting Pantoprazole Sodium (Protonix Iv) 40 mg IV Q12HR [facility] Last Admin: 01/28/20 08:45 Dose: 40 mg Potassium Chloride (Klor-Con M20) 40 meq PO BID [facility] Last Admin: 01/28/20 08:46 Dose: 40 meq Sodium Chloride (Saline Flush) 10 ml FLUSH ASDIRECTED PRN PRN Reason: Keep Vein Open Last Admin: 01/27/20 19:06 Dose: 10 ml Sodium Chloride (Saline Flush) 2.5 ml FLUSH ASDIRECTED PRN PRN Reason: Keep Vein Open Last Admin: 01/27/20 19:06 Dose: 2.5 ml Sodium Chloride (Normal Saline) 10 ml IV ASDIRECTED PRN PRN Reason: IV Use Last Admin: 01/28/20 08:45 Dose: 10 ml Thiamine HCl (Vitamin B-1) 100 mg PO DAILY [facility] Last Admin: 01/28/20 09:24 Dose: 100 mg Discontinued Medications Haloperidol Lactate (Haldol) Confirm Administered Dose 10 mg .ROUTE .STK-MED ONE Stop: 01/27/20 18:21 Last Admin: 01/27/20 18:39 Dose: Not Given Haloperidol Lactate (Haldol) 10 mg IM ONETIME ONE Stop: 01/27/20 18:32 Last Admin: 01/27/20 18:35 Dose: 10 mg Haloperidol Lactate (Haldol) 10 mg IM Q8H PRN PRN Reason: Agitation Lactated Ringer's (Ringers, Lactated) 1,000 mls @ 999 mls/hr IV ASDIRECTED [facility] Last Admin: 01/27/20 18:33 Dose: 999 mls/hr Multivitamins/Minerals 10 ml/Thiamine HCl 100 mg/ Folic Acid 1 mg/ Sodium Chloride 1,011.2 mls @ 999 mls/hr IV ONETIME ONE Stop: 01/27/20 20:44 Last Admin: 01/27/20 20:30 Dose: 999 mls/hr Magnesium Sulfate 1 gm/ Premix 25 mls @ 25 mls/hr IV ONETIME ONE Stop: 01/28/20 08:59 Last Admin: 01/28/20 08:43 Dose: 25 mls/hr Ketamine HCl (Ketalar) 50 mg IV ONETIME ONE Stop: 01/27/20 18:51 Last Admin: 01/27/20 19:00 Dose: 50 mg Magnesium Sulfate (Magnesium Sulfate 50%) 1 gm IM ONETIME ONE Stop: 01/28/20 07:44 Last Admin: 01/28/20 08:50 Dose: Not Given
[2020-01-28] MEDS ORDERED: LORazepam 2 MG/ML SDV IVPUSH ONE (12:35)
--- NOTE | 2020-01-28 13:21 | PCM.PN ---
- General Info Date of Service: 01/28/20 Admission Dx/Problem (Free Text): Admission Diagnosis/Problem Admission Diagnosis/Problem Acute encephalopathy Subjective Update: Patient was seen and examined at bedside, awake, alert, keen to be discharged. - Review of Systems General: Denies: Fever, Weakness, Fatigue Pulmonary: Denies: Shortness of Breath, Pleuritic Chest Pain Cardiovascular: Denies: Chest Pain, Palpitations, Dyspnea on Exertion Gastrointestinal: Denies: Abdominal Pain, Constipation, Decreased Appetite Genitourinary: Reports: Burning. Denies: Dysuria, Frequency Musculoskeletal: Reports: Arm Pain. Denies: Neck Pain, Shoulder Pain - Patient Data Vitals - Most Recent: Last Vital Signs Temp 36.5 C 01/28/20 08:00 Pulse 102 H 01/27/20 19:52 Resp 20 01/28/20 12:00 BP 141/84 H 01/28/20 12:00 Pulse Ox 94 L 01/28/20 12:00 Weight - Most Recent: 74.072 kg I&O - Last 24 Hours: Intake & Output 01/27/20 01/28/20 01/28/20 22:59 06:59 14:59 Intake Total 1011 1450 25 Output Total 1825 Balance 1011 -375 25 Lab Results Last 24 Hours: Laboratory Results - last 24 hr 01/27/20 01/27/20 01/27/20 Range/Units 15:20 15:20 15:29 WBC 5.57 (4.0-11.0) K/uL RBC 4.87 (4.50-5.90) M/uL Hgb 15.0 (13.0-17.0) g/dL Hct 44.1 (38.0-50.0) % MCV 90.6 (80.0-98.0) fL MCH 30.8 (27.0-32.0) pg MCHC 34.0 (31.0-37.0) g/dL RDW Std Deviation 43.2 (28.0-62.0) fl RDW Coeff of Jailene 13 (11.0-15.0) % Plt Count 129 L (150-400) K/uL MPV 8.50 (7.40-12.00) fL Neut % (Auto) 44.8 L (48.0-80.0) % Lymph % (Auto) 40.6 H (16.0-40.0) % [place] % (Auto) 7.9 (0.0-15.0) % Eos % (Auto) 6.5 (0.0-7.0) % Baso % (Auto) 0.2 (0.0-1.5) % Neut # (Auto) 2.5 (1.4-5.7) K/uL Lymph # (Auto) 2.3 (0.6-2.4) K/uL [place] # (Auto) 0.4 (0.0-0.8) K/uL Eos # (Auto) 0.4 (0.0-0.7) K/uL Baso # (Auto) 0.0 (0.0-0.1) K/uL Nucleated RBC % 0.0 /100WBC Nucleated RBCs # 0 K/uL INR VBG pH (7.31-7.41) VBG pCO2 (35-45) mmHG VBG pO2 (30-40) mmHG VBG HCO3 (22-30) mEq/L VBG Total CO2 (41-51) mmol/L VBG Base Excess (-3.0-3.0) Lactate (0.20-2.00) mmol/L Sodium (136-148) mmol/L Potassium (3.5-5.1) mmol/L Chloride (98-107) mmol/L Carbon Dioxide (21.0-32.0) mmol/L BUN (7.0-18.0) mg/dL Creatinine (0.8-1.3) mg/dL Est Cr Clr Drug Dosing Estimated GFR (MDRD) ml/min Glucose (74-106) mg/dL Calcium (8.5-10.1) mg/dL Phosphorus (2.6-4.7) mg/dL Magnesium (1.8-2.4) mg/dL Total Bilirubin (0.2-1.0) mg/dL AST (15-37) IU/L ALT (14-63) IU/L Alkaline Phosphatase (46-116) U/L Troponin I (0.000-0.056) ng/mL Total Protein (6.4-8.2) g/dL Albumin (3.4-5.0) g/dL Globulin (2.6-4.0) g/dL Albumin/Globulin Ratio (0.9-1.6) Urine Color YELLOW Urine Appearance CLEAR Urine pH 5.0 (5.0-8.0) Ur Specific [place] <= 1.005 (1.001-1.035) Urine Protein NEGATIVE (NEGATIVE) mg/dL Urine Glucose (UA) NEGATIVE (NEGATIVE) mg/dL Urine Ketones NEGATIVE (NEGATIVE) mg/dL Urine Occult Blood NEGATIVE (NEGATIVE) Urine Nitrite NEGATIVE (NEGATIVE) Urine Bilirubin NEGATIVE (NEGATIVE) Urine Urobilinogen 0.2 (<2.0) EU/dL Ur Leukocyte Esterase NEGATIVE (NEGATIVE) Salicylates (0-20) mg/dL Urine Opiates Screen NEGATIVE (NEGATIVE) Ur Oxycodone Screen NEGATIVE (NEGATIVE) Urine Methadone Screen NEGATIVE (NEGATIVE) Acetaminophen ug/mL Ur Barbiturates Screen NEGATIVE (NEGATIVE) Ur Phencyclidine Scrn NEGATIVE (NEGATIVE) Ur Amphetamine Screen NEGATIVE (NEGATIVE) U Methamphetamines Scrn NEGATIVE (NEGATIVE) U Benzodiazepines Scrn NEGATIVE (NEGATIVE) U Cocaine Metab Screen NEGATIVE (NEGATIVE) U Marijuana (THC) Screen NEGATIVE (NEGATIVE) Ethyl Alcohol mg/dL 01/27/20 01/27/20 01/27/20 Range/Units 15:29 15:29 15:29 WBC (4.0-11.0) K/uL RBC (4.50-5.90) M/uL Hgb (13.0-17.0) g/dL Hct (38.0-50.0) % MCV (80.0-98.0) fL MCH (27.0-32.0) pg MCHC (31.0-37.0) g/dL RDW Std Deviation (28.0-62.0) fl RDW Coeff of Jailene (11.0-15.0) % Plt Count (150-400) K/uL MPV (7.40-12.00) fL Neut % (Auto) (48.0-80.0) % Lymph % (Auto) (16.0-40.0) % [place] % (Auto) (0.0-15.0) % Eos % (Auto) (0.0-7.0) % Baso % (Auto) (0.0-1.5) % Neut # (Auto) (1.4-5.7) K/uL Lymph # (Auto) (0.6-2.4) K/uL [place] # (Auto) (0.0-0.8) K/uL Eos # (Auto) (0.0-0.7) K/uL Baso # (Auto) (0.0-0.1) K/uL Nucleated RBC % /100WBC Nucleated RBCs # K/uL INR 0.98 VBG pH (7.31-7.41) VBG pCO2 (35-45) mmHG VBG pO2 (30-40) mmHG VBG HCO3 (22-30) mEq/L VBG Total CO2 (41-51) mmol/L VBG Base Excess (-3.0-3.0) Lactate 2.0 (0.20-2.00) mmol/L Sodium 147 (136-148) mmol/L Potassium 3.8 (3.5-5.1) mmol/L Chloride 109 H (98-107) mmol/L Carbon Dioxide 21.9 (21.0-32.0) mmol/L BUN 8 (7.0-18.0) mg/dL Creatinine 0.9 (0.8-1.3) mg/dL Est Cr Clr Drug Dosing TNP Estimated GFR (MDRD) > 60.0 ml/min Glucose 101 (74-106) mg/dL Calcium 7.8 L (8.5-10.1) mg/dL Phosphorus (2.6-4.7) mg/dL Magnesium (1.8-2.4) mg/dL Total Bilirubin 0.2 (0.2-1.0) mg/dL AST 28 (15-37) IU/L ALT 33 (14-63) IU/L Alkaline Phosphatase 102 (46-116) U/L Troponin I < 0.050 (0.000-0.056) ng/mL Total Protein 8.1 (6.4-8.2) g/dL Albumin 4.0 (3.4-5.0) g/dL Globulin 4.1 H (2.6-4.0) g/dL Albumin/Globulin Ratio 1.0 (0.9-1.6) Urine Color Urine Appearance Urine pH (5.0-8.0) Ur Specific [place] (1.001-1.035) Urine Protein (NEGATIVE) mg/dL Urine Glucose (UA) (NEGATIVE) mg/dL Urine Ketones (NEGATIVE) mg/dL Urine Occult Blood (NEGATIVE) Urine Nitrite (NEGATIVE) Urine Bilirubin (NEGATIVE) Urine Urobilinogen (<2.0) EU/dL Ur Leukocyte Esterase (NEGATIVE) Salicylates 1.5 (0-20) mg/dL Urine Opiates Screen (NEGATIVE) Ur Oxycodone Screen (NEGATIVE) Urine Methadone Screen (NEGATIVE) Acetaminophen <2.0 ug/mL Ur Barbiturates Screen (NEGATIVE) Ur Phencyclidine Scrn (NEGATIVE) Ur Amphetamine Screen (NEGATIVE) U Methamphetamines Scrn (NEGATIVE) U Benzodiazepines Scrn (NEGATIVE) U Cocaine Metab Screen (NEGATIVE) U Marijuana (THC) Screen (NEGATIVE) Ethyl Alcohol 489 mg/dL 01/27/20 01/27/20 01/27/20 Range/Units 15:29 17:37 20:23 WBC (4.0-11.0) K/uL RBC (4.50-5.90) M/uL Hgb (13.0-17.0) g/dL Hct (38.0-50.0) % MCV (80.0-98.0) fL MCH (27.0-32.0) pg MCHC (31.0-37.0) g/dL RDW Std Deviation (28.0-62.0) fl RDW Coeff of Jailene (11.0-15.0) % Plt Count (150-400) K/uL MPV (7.40-12.00) fL Neut % (Auto) (48.0-80.0) % Lymph % (Auto) (16.0-40.0) % [place] % (Auto) (0.0-15.0) % Eos % (Auto) (0.0-7.0) % Baso % (Auto) (0.0-1.5) % Neut # (Auto) (1.4-5.7) K/uL Lymph # (Auto) (0.6-2.4) K/uL [place] # (Auto) (0.0-0.8) K/uL Eos # (Auto) (0.0-0.7) K/uL Baso # (Auto) (0.0-0.1) K/uL Nucleated RBC % /100WBC Nucleated RBCs # K/uL INR VBG pH 7.36 (7.31-7.41) VBG pCO2 40 (35-45) mmHG VBG pO2 145 H (30-40) mmHG VBG HCO3 23 (22-30) mEq/L VBG Total CO2 20 L (41-51) mmol/L VBG Base Excess -2.6 (-3.0-3.0) Lactate 1.4 (0.20-2.00) mmol/L Sodium (136-148) mmol/L Potassium (3.5-5.1) mmol/L Chloride (98-107) mmol/L Carbon Dioxide (21.0-32.0) mmol/L BUN (7.0-18.0) mg/dL Creatinine (0.8-1.3) mg/dL Est Cr Clr Drug Dosing Estimated GFR (MDRD) ml/min Glucose (74-106) mg/dL Calcium (8.5-10.1) mg/dL Phosphorus (2.6-4.7) mg/dL Magnesium (1.8-2.4) mg/dL Total Bilirubin (0.2-1.0) mg/dL AST (15-37) IU/L ALT (14-63) IU/L Alkaline Phosphatase (46-116) U/L Troponin I < 0.050 (0.000-0.056) ng/mL Total Protein (6.4-8.2) g/dL Albumin (3.4-5.0) g/dL Globulin (2.6-4.0) g/dL Albumin/Globulin Ratio (0.9-1.6) Urine Color Urine Appearance Urine pH (5.0-8.0) Ur Specific [place] (1.001-1.035) Urine Protein (NEGATIVE) mg/dL Urine Glucose (UA) (NEGATIVE) mg/dL Urine Ketones (NEGATIVE) mg/dL Urine Occult Blood (NEGATIVE) Urine Nitrite (NEGATIVE) Urine Bilirubin (NEGATIVE) Urine Urobilinogen (<2.0) EU/dL Ur Leukocyte Esterase (NEGATIVE) Salicylates (0-20) mg/dL Urine Opiates Screen (NEGATIVE) Ur Oxycodone Screen (NEGATIVE) Urine Methadone Screen (NEGATIVE) Acetaminophen ug/mL Ur Barbiturates Screen (NEGATIVE) Ur Phencyclidine Scrn (NEGATIVE) Ur Amphetamine Screen (NEGATIVE) U Methamphetamines Scrn (NEGATIVE) U Benzodiazepines Scrn (NEGATIVE) U Cocaine Metab Screen (NEGATIVE) U Marijuana (THC) Screen (NEGATIVE) Ethyl Alcohol mg/dL 01/28/20 01/28/20 Range/Units 05:55 05:55 WBC 6.01 (4.0-11.0) K/uL RBC 4.37 L (4.50-5.90) M/uL Hgb 13.3 (13.0-17.0) g/dL Hct 39.6 (38.0-50.0) % MCV 90.6 (80.0-98.0) fL MCH 30.4 (27.0-32.0) pg MCHC 33.6 (31.0-37.0) g/dL RDW Std Deviation 43.0 (28.0-62.0) fl RDW Coeff of Jailene 13 (11.0-15.0) % Plt Count 98 L (150-400) K/uL MPV 8.80 (7.40-12.00) fL Neut % (Auto) 59.7 (48.0-80.0) % Lymph % (Auto) 26.8 (16.0-40.0) % [place] % (Auto) 9.3 (0.0-15.0) % Eos % (Auto) 4.0 (0.0-7.0) % Baso % (Auto) 0.2 (0.0-1.5) % Neut # (Auto) 3.6 (1.4-5.7) K/uL Lymph # (Auto) 1.6 (0.6-2.4) K/uL [place] # (Auto) 0.6 (0.0-0.8) K/uL Eos # (Auto) 0.2 (0.0-0.7) K/uL Baso # (Auto) 0.0 (0.0-0.1) K/uL Nucleated RBC % 0.0 /100WBC Nucleated RBCs # 0 K/uL INR VBG pH (7.31-7.41) VBG pCO2 (35-45) mmHG VBG pO2 (30-40) mmHG VBG HCO3 (22-30) mEq/L VBG Total CO2 (41-51) mmol/L VBG Base Excess (-3.0-3.0) Lactate (0.20-2.00) mmol/L Sodium 145 (136-148) mmol/L Potassium 3.4 L (3.5-5.1) mmol/L Chloride 108 H (98-107) mmol/L Carbon Dioxide 25.4 (21.0-32.0) mmol/L BUN 7 (7.0-18.0) mg/dL Creatinine 0.7 L (0.8-1.3) mg/dL Est Cr Clr Drug Dosing 156.07 Estimated GFR (MDRD) > 60.0 ml/min Glucose 84 (74-106) mg/dL Calcium 7.6 L (8.5-10.1) mg/dL Phosphorus 2.7 (2.6-4.7) mg/dL Magnesium 1.3 L (1.8-2.4) mg/dL Total Bilirubin (0.2-1.0) mg/dL AST (15-37) IU/L ALT (14-63) IU/L Alkaline Phosphatase (46-116) U/L Troponin I (0.000-0.056) ng/mL Total Protein (6.4-8.2) g/dL Albumin (3.4-5.0) g/dL Globulin (2.6-4.0) g/dL Albumin/Globulin Ratio (0.9-1.6) Urine Color Urine Appearance Urine pH (5.0-8.0) Ur Specific [place] (1.001-1.035) Urine Protein (NEGATIVE) mg/dL Urine Glucose (UA) (NEGATIVE) mg/dL Urine Ketones (NEGATIVE) mg/dL Urine Occult Blood (NEGATIVE) Urine Nitrite (NEGATIVE) Urine Bilirubin (NEGATIVE) Urine Urobilinogen (<2.0) EU/dL Ur Leukocyte Esterase (NEGATIVE) Salicylates (0-20) mg/dL Urine Opiates Screen (NEGATIVE) Ur Oxycodone Screen (NEGATIVE) Urine Methadone Screen (NEGATIVE) Acetaminophen ug/mL Ur Barbiturates Screen (NEGATIVE) Ur Phencyclidine Scrn (NEGATIVE) Ur Amphetamine Screen (NEGATIVE) U Methamphetamines Scrn (NEGATIVE) U Benzodiazepines Scrn (NEGATIVE) U Cocaine Metab Screen (NEGATIVE) U Marijuana (THC) Screen (NEGATIVE) Ethyl Alcohol mg/dL Med Orders - Current: Current Medications Albuterol/Ipratropium (Duoneb 3.0-0.5 Mg/3 Ml) 3 ml NEB Q4HRRT PRN PRN Reason: Shortness Of Breath/wheezing Diphenhydramine HCl (Benadryl) 50 mg IVPUSH Q8H PRN PRN Reason: Agitation Enoxaparin Sodium (Lovenox) 40 mg SUBCUT Q24H [facility] Last Admin: 01/27/20 20:28 Dose: 40 mg Folic Acid (Folic Acid) 1 mg PO DAILY [facility] Last Admin: 01/28/20 08:46 Dose: 1 mg Haloperidol Lactate (Haldol) 5 mg IM Q8H PRN PRN Reason: Agitation Lactated Ringer's (Ringers, Lactated) 1,000 mls @ 125 mls/hr IV ASDIRECTED [facility] Last Admin: 01/28/20 05:47 Dose: 125 mls/hr Lorazepam (Ativan) 0 mg IVPUSH Q4H PRN; Protocol PRN Reason: Withdrawal Symptoms Ondansetron HCl (Zofran) 4 mg IVPUSH Q4H PRN PRN Reason: Nausea/Vomiting Pantoprazole Sodium (Protonix Iv) 40 mg IV Q12HR [facility] Last Admin: 01/28/20 08:45 Dose: 40 mg Potassium Chloride (Klor-Con M20) 40 meq PO BID [facility] Last Admin: 01/28/20 08:46 Dose: 40 meq Sodium Chloride (Saline Flush) 10 ml FLUSH ASDIRECTED PRN PRN Reason: Keep Vein Open Last Admin: 01/27/20 19:06 Dose: 10 ml Sodium Chloride (Saline Flush) 2.5 ml FLUSH ASDIRECTED PRN PRN Reason: Keep Vein Open Last Admin: 01/27/20 19:06 Dose: 2.5 ml Sodium Chloride (Normal Saline) 10 ml IV ASDIRECTED PRN PRN Reason: IV Use Last Admin: 01/28/20 08:45 Dose: 10 ml Thiamine HCl (Vitamin B-1) 100 mg PO DAILY [facility] Last Admin: 01/28/20 09:24 Dose: 100 mg Discontinued Medications Haloperidol Lactate (Haldol) Confirm Administered Dose 10 mg .ROUTE .STK-MED ONE Stop: 01/27/20 18:21 Last Admin: 01/27/20 18:39 Dose: Not Given Haloperidol Lactate (Haldol) 10 mg IM ONETIME ONE Stop: 01/27/20 18:32 Last Admin: 01/27/20 18:35 Dose: 10 mg Haloperidol Lactate (Haldol) 10 mg IM Q8H PRN PRN Reason: Agitation Lactated Ringer's (Ringers, Lactated) 1,000 mls @ 999 mls/hr IV ASDIRECTED [facility] Last Admin: 01/27/20 18:33 Dose: 999 mls/hr Multivitamins/Minerals 10 ml/Thiamine HCl 100 mg/ Folic Acid 1 mg/ Sodium Chloride 1,011.2 mls @ 999 mls/hr IV ONETIME ONE Stop: 01/27/20 20:44 Last Admin: 01/27/20 20:30 Dose: 999 mls/hr Magnesium Sulfate 1 gm/ Premix 25 mls @ 25 mls/hr IV ONETIME ONE Stop: 01/28/20 08:59 Last Admin: 01/28/20 08:43 Dose: 25 mls/hr Ketamine HCl (Ketalar) 50 mg IV ONETIME ONE Stop: 01/27/20 18:51 Last Admin: 01/27/20 19:00 Dose: 50 mg Lorazepam (Ativan) 2 mg IVPUSH ONETIME ONE Stop: 01/28/20 12:36 Magnesium Sulfate (Magnesium Sulfate 50%) 1 gm IM ONETIME ONE Stop: 01/28/20 07:44 Last Admin: 01/28/20 08:50 Dose: Not Given - Exam General: Alert, Oriented, No Acute Distress Neck: Supple, Trachea Midline Lungs: Clear to Auscultation, Normal Respiratory Effort Cardiovascular: Regular Rate, Regular Rhythm GI/Abdominal Exam: Normal Bowel Sounds, Soft, Non-Tender Extremities: Normal Inspection, Normal Range of Motion Sepsis Event Note - Evaluation Sepsis Screening Result: No Definite Risk - Focused Exam Vital Signs: Vital Signs Temp Resp BP Pulse Ox 01/28/20 12:00 20 141/84 H 94 L 01/28/20 10:00 21 H 127/77 92 L 01/28/20 09:00 16 127/76 92 L 01/28/20 08:00 36.5 C 18 118/74 94 L 01/28/20 07:00 16 118/69 90 L 01/28/20 06:00 16 112/62 92 L 01/28/20 05:00 18 103/53 L 95 01/28/20 04:00 36.6 C 18 108/51 L 95 01/28/20 03:00 18 100/47 L 95 01/28/20 02:00 18 102/49 L 95 Date Exam was Performed: 01/29/20 Time Exam was Performed: 23:41 - Problem List & Annotations (1) Alcohol intoxication SNOMED Code(s): 46644547 Code(s): F10.929 - ALCOHOL USE, UNSPECIFIED WITH INTOXICATION, UNSPECIFIED Status: Acute (2) AMS (altered mental status) SNOMED Code(s): 347814870 Code(s): R41.82 - ALTERED MENTAL STATUS, UNSPECIFIED Status: Acute - Problem List Review Problem List Initiated/Reviewed/Updated: Yes - My Orders Last 24 Hours: My Active Orders 01/27/20 19:22 Admission Status [Patient Status] [ADT] Routine 01/27/20 19:41 Ambulate [RC] ASDIRECTED Oxygen Therapy [RC] PRN VTE/DVT Education [RC] PER UNIT ROUTINE Vital Signs [RC] Q4H Albuterol/Ipratropium [DuoNeb 3.0-0.5 MG/3 ML] 3 ml NEB Q4HRRT PRN Ondansetron [Zofran] 4 mg IVPUSH Q4H PRN 01/27/20 19:42 Sequential Compression Device [OM.PC] Per Unit Routine 01/27/20 19:43 Antiembolic Devices [RC] PER UNIT ROUTINE RT Aerosol Therapy [RC] ASDIRECTED 01/27/20 19:45 Enoxaparin [Lovenox] 40 mg SUBCUT Q24H LORazepam [Ativan] See Protocol IVPUSH Q4H PRN Lactated Ringers [Ringers, Lactated] 1,000 ml IV ASDIRECTED 01/27/20 19:49 Haloperidol Lactate [Haldol] 5 mg IM Q8H PRN diphenhydrAMINE [Benadryl] 50 mg IVPUSH Q8H PRN 01/27/20 21:00 Pantoprazole [ProTONIX IV] 40 mg IV Q12HR 01/27/20 21:45 Remove-Discontinue Non-Violent Restraints ONETIME 01/28/20 06:36 Remove Giles Catheter [Urinary Catheter Removal] [RC] Per Unit Routine 01/28/20 09:00 Folic Acid 1 mg PO DAILY Thiamine [Vitamin B-1] 100 mg PO DAILY 01/28/20 10:44 Transfer Patient (Change bed) [ADT] Routine 01/28/20 10:56 Ready for Discharge [RC] PER UNIT ROUTINE 01/28/20 Breakfast Regular Diet [DIET] - Plan Plan:: 24 y/o M admitted for alcohol intoxication last night Currently patient stable, CIWA 1-2, no ativan used overnight Patient denied any SI or HI, states he wants help with detox on outpatient basis cont thiamine and folic acid Ativan per CIWA protocol Monitor and replete electrolytes Lovenox for DVT ppx Monitor platelets, watch for bleeding PPI for GI ppx Possible DC later if no signs of withdrawal, will get psych on board as well due to family concerns of Suicidal thoughts in past
--- NOTE | 2020-01-28 20:58 | CONS ---
DATE OF CONSULTATION: 01/28/2020 DATE OF : 1995 PRIMARY CARE PHYSICIAN: None PCP Site where the services are provided are [facility] in [place], [place]. Site where the services are provided from our offices in [facility]. Length of service for this 60-minute inpatient telemedicine event is 60 minutes. IDENTIFICATION: The patient is a 24-year-old male who was admitted to the [facility] in [place], [place]. He is seen for psychiatric consultation per the request of Dr. Martinez and her treatment team. CHIEF COMPLAINT: "I drank too much. My girlfriend and I got into an argument of some sort." HISTORY OF PRESENT ILLNESS: The patient is a 24-year-old male, who was admitted to the [facility] MICU on January 27, 2020, after presenting to the ER unresponsive and with a BAL of 400. There were concerns of alcohol poisoning. The patient is being medically stabilized, but there were some concerns on the part of the staff from the emergency room that the patient might have been suicidal as well as some reports from the patient's family that the patient has been drinking very heavily and when he is drunk, he states that he does not want to live. On interview, the patient is stating that he had been drinking heavily, although he does not know how much. He states it was both hard liquor and beer. He notes "it is obviously the problem I am here," but he is denying that he is suicidal or homicidal, and he is denying any psychotic delusional paranoid symptoms. He is alert and oriented x3. He states he wants to get medically stabilized and discharged, "so I can go back home and chill." He states "I just want to lay on the couch" and he states he will not drink for "I do not know, probably a couple weeks," but he is not certain that he wants to stop drinking at this point in time. Again, he is denying that he is suicidal or homicidal. He is denying any psychotic delusional paranoid symptoms. He is cognitively oriented x3. He denies having any guns in the house. He denies any previous suicide attempts. He states that he is living at his brother's house in [place] and he states that his brother is out working an oil job down in [place]. MEDICATIONS: At time of presentation, none. ALLERGIES: No known drug allergies. PAST MEDICAL HISTORY: The patient denies. REVIEW OF SYSTEMS: Negative for any acute difficulties or complications currently with his GI, , pulmonary, cardiac, endocrine, blood, immune, skin, musculoskeletal, or nervous systems. FAMILY PSYCHIATRIC AND CD HISTORY: The patient states his mother had chemical dependency issues. PAST PSYCHIATRIC AND CD HISTORY: The patient denies any previous psychiatric hospitalization. He reports 1 chemical dependency treatment back in 2018, after which he had about 1-1/2 months sobriety and he states he has been able to stay sober "when I tried." He has gone to AA and AA has helped him. He denies any previous suicide attempts or self-injurious behavior. He does report that he has 2 DWIs that he got recently. He denies any eating disorder history. He reports no previous detox admissions. PAST PSYCHIATRIC DIAGNOSIS: Includes depression, but again, the patient is denying any depression now and does not want psychiatric medications. SOCIAL HISTORY: The patient was born and raised in [place], [place]. He is the second of 7 siblings. The patient's parents were never . He was raised primarily by his maternal grandmother. He has Bachelor of Science and elementary education. He is currently unemployed, but he regularly works in the [employer] field. He was x1 for 3 years, but has been for the past 8 months. He has been in a relationship for about a month. He does not have any biological children. He lives in [place], [place], with his brother. He denies any prior service. He reports 2 DWI charges so far as legal is concerned. He is raised Mosque so far as his parker formation is concerned. He enjoys fishing, hiking, sports, and outdoors activities in general. MENTAL STATUS EXAMINATION: The patient is a 24-year-old white male in no apparent distress. Speech is of regular rate and rhythm. The patient is cognitively oriented x3. Psychomotor activities are within normal limits. There is no abnormal motor movements or tics observed. Gait and station are not observed as this patient is lied abductor in the inpatient consult. Mood is tired. Affect is cooperative overall for the purposes of the inpatient consult. There is no behavioral or stated evidence of acute suicidal or homicidal ideation or acute psychotic delusional paranoid symptoms. Thought processes are organized. There are no acute manic symptoms or loose associations evident. Judgment, insight appear unimpaired at this point in time. Motivation for help is fair to poor. VITAL SIGNS: 140/84, 94, 16, 98.6 degrees. IMPRESSION: [place] I. 1. Alcohol dependence, F10.20. 2. Anxiety disorder, not otherwise specified, F41.9. 3. Depression, not otherwise specified, F32.9. 4. Rule out major depressive disorder. [place] II: None. [place] III: No known active signs and symptoms of alcohol with possible alcohol withdrawal. [place] IV: Severe. Pang[place] V: 55 to 60. PLAN: 1. Sobriety. 2. Recommend AA if the patient is unable to maintain sobriety on his own. 3. Also, recommend inpatient and outpatient structured chemical dependency treatment if the patient is unable to maintain sobriety on his own. 4. Recommend the patient follow up with outpatient psychiatry once he is medically stabilized if he experiences depression or anxiety on an excessive basis. 5. Once the patient is medically stabilized, may discharge the patient back to the community as he does not appear to be in danger to himself or others at this point in time. 6. Did explain to the patient that if he presented under similar circumstances in the future that serious consideration would be made for possible commitment or transfer to inpatient psychiatric hospitalization as he would be displaying a pattern that does potentially pose a danger to himself or others and he acknowledges understanding these facts and stated that he would try to refrain from drinking again for at least a couple of weeks and see about exploring potentially checking out AA as it did help him in the past. 7. We will continue to follow up with the patient on an as needed basis while he remains on inpatient MICU at [facility] in [place], [place]. 8. Recommend that the patient be monitored for possible withdrawal and use the CIWA protocol to help manage withdrawal if need be. 9. Folic acid supplementation while on unit. 10.Thiamine supplementation while on unit. 11.Other medications as dosed and prescribed by the patient's primary inpatient medical treatment team. 12.Crisis plan is in place. LOPEDAV / MODL /[id number]
--- NOTE | 2020-01-28 22:01 | PCM.SN.2 ---
- Free Text/Narrative Note: patients girl friend informed that she has "broken up" their relationship previous night when called with update on the patient. When patient was informed this, patient got really anxious , was shaky, flushed, CIWA was about 12. He received 2mg of Ativan which helped him to relax. I would keep the patient one more day due to this episode, and concern of alcohol withdrawal. Patient however not keen on staying, he understands the risks of leaving AMA. Will speak with psych to see if he is competent to make his decision about leaving AMA. Update: spoke to Psych, patient cannot be held against his will and is competent to make his decision if he decides to leave AMA.
--- NOTE | 2020-01-29 23:44 | PCM.DCSUM1 ---
Discharge Summary - Hospital Course Diagnosis: Stroke: No - Discharge Data Discharge Date: 01/28/20 Discharge Disposition: Home, Self-Care 01 Condition: Stable - Referral to Home Health Primary Care Physician: PCP None - Discharge Diagnosis/Problem(s) (1) Alcohol intoxication SNOMED Code(s): 97152537 ICD Code: F10.929 - ALCOHOL USE, UNSPECIFIED WITH INTOXICATION, UNSPECIFIED Status: Acute (2) AMS (altered mental status) SNOMED Code(s): 658111243 ICD Code: R41.82 - ALTERED MENTAL STATUS, UNSPECIFIED Status: Acute - Discharge Plan *PRESCRIPTION DRUG MONITORING PROGRAM REVIEWED*: Not Applicable *COPY OF PRESCRIPTION DRUG MONITORING REPORT IN PATIENT [place]: Not Applicable Prescriptions/Med Rec: Folic Acid 1 mg PO DAILY 30 Days #30 tablet Thiamine [Vitamin B-1] 100 mg PO DAILY #30 tablet Home Medications: Home Meds Folic Acid 1 mg PO DAILY 30 Days #30 tablet 01/28/20 [Rx] Thiamine [Vitamin B-1] 100 mg PO DAILY #30 tablet 01/28/20 [Rx] Patient Handouts: Binge-Drinking Information, Adult Referrals: [facility] [Ordering Only Provider] - (Please call Dr. Ríos ( psychiatrist) tomorrow, Wednesday January 29, 2020 for an appointment.) - Patient Data Vitals - Most Recent: Last Vital Signs Temp 36.6 C 01/28/20 16:00 Pulse 102 H 01/27/20 19:52 Resp 24 H 01/28/20 16:00 BP 153/99 H 01/28/20 16:00 Pulse Ox 92 L 01/28/20 16:00 Weight - Most Recent: 74.072 kg Med Orders - Current: Current Medications Discontinued Medications Albuterol/Ipratropium (Duoneb 3.0-0.5 Mg/3 Ml) 3 ml NEB Q4HRRT PRN PRN Reason: Shortness Of Breath/wheezing Diphenhydramine HCl (Benadryl) 50 mg IVPUSH Q8H PRN PRN Reason: Agitation Enoxaparin Sodium (Lovenox) 40 mg SUBCUT Q24H MARTELL Last Admin: 01/27/20 20:28 Dose: 40 mg Folic Acid (Folic Acid) 1 mg PO DAILY MARTELL Last Admin: 01/28/20 08:46 Dose: 1 mg Haloperidol Lactate (Haldol) Confirm Administered Dose 10 mg .ROUTE .STK-MED ONE Stop: 01/27/20 18:21 Last Admin: 01/27/20 18:39 Dose: Not Given Haloperidol Lactate (Haldol) 10 mg IM ONETIME ONE Stop: 01/27/20 18:32 Last Admin: 01/27/20 18:35 Dose: 10 mg Haloperidol Lactate (Haldol) 10 mg IM Q8H PRN PRN Reason: Agitation Haloperidol Lactate (Haldol) 5 mg IM Q8H PRN PRN Reason: Agitation Lactated Ringer's (Ringers, Lactated) 1,000 mls @ 999 mls/hr IV ASDIRECTED [facility] Last Admin: 01/27/20 18:33 Dose: 999 mls/hr Lactated Ringer's (Ringers, Lactated) 1,000 mls @ 125 mls/hr IV ASDIRECTED [facility] Last Admin: 01/28/20 05:47 Dose: 125 mls/hr Multivitamins/Minerals 10 ml/Thiamine HCl 100 mg/ Folic Acid 1 mg/ Sodium Chloride 1,011.2 mls @ 999 mls/hr IV ONETIME ONE Stop: 01/27/20 20:44 Last Admin: 01/27/20 20:30 Dose: 999 mls/hr Magnesium Sulfate 1 gm/ Premix 25 mls @ 25 mls/hr IV ONETIME ONE Stop: 01/28/20 08:59 Last Admin: 01/28/20 08:43 Dose: 25 mls/hr Ketamine HCl (Ketalar) 50 mg IV ONETIME ONE Stop: 01/27/20 18:51 Last Admin: 01/27/20 19:00 Dose: 50 mg Lorazepam (Ativan) 0 mg IVPUSH Q4H PRN; Protocol PRN Reason: Withdrawal Symptoms Lorazepam (Ativan) 2 mg IVPUSH ONETIME ONE Stop: 01/28/20 12:36 Last Admin: 01/28/20 12:35 Dose: 2 mg Magnesium Sulfate (Magnesium Sulfate 50%) 1 gm IM ONETIME ONE Stop: 01/28/20 07:44 Last Admin: 01/28/20 08:50 Dose: Not Given Ondansetron HCl (Zofran) 4 mg IVPUSH Q4H PRN PRN Reason: Nausea/Vomiting Pantoprazole Sodium (Protonix Iv) 40 mg IV Q12HR [facility] Last Admin: 01/28/20 08:45 Dose: 40 mg Potassium Chloride (Klor-Con M20) 40 meq PO BID [facility] Last Admin: 01/28/20 08:46 Dose: 40 meq Sodium Chloride (Saline Flush) 10 ml FLUSH ASDIRECTED PRN PRN Reason: Keep Vein Open Last Admin: 01/27/20 19:06 Dose: 10 ml Sodium Chloride (Saline Flush) 2.5 ml FLUSH ASDIRECTED PRN PRN Reason: Keep Vein Open Last Admin: 01/27/20 19:06 Dose: 2.5 ml Sodium Chloride (Normal Saline) 10 ml IV ASDIRECTED PRN PRN Reason: IV Use Last Admin: 01/28/20 08:45 Dose: 10 ml Thiamine HCl (Vitamin B-1) 100 mg PO DAILY [facility] Last Admin: 01/28/20 09:24 Dose: 100 mg
== END 2020-01-28 16:30 | disposition home or self-care (01) | DRG 897 ==
LOC: MW.ED 15:24 → MW.ICU 17:22 → OBSVTOIN 19:22
PROVIDERS: ADMIT Student in an Organized Health Care Education/Training Program; ATTEND Student in an Organized Health Care Education/Training Program
DX: F10.229 Alcohol dependence with intoxication, unspecified (principal); F41.9 Anxiety disorder, unspecified; F32.9 Major depressive disorder, single episode, unspecified; Y90.8 Blood alcohol level of 240 mg/100 ml or more; R41.82 Altered mental status, unspecified; Z79.899 Other long term (current) drug therapy
CPT/HCPCS: 36415; 51702; 70450; 70450-26; 71045; 71045-26; 80048; 80053; 80305-QW; 80307; 81003; 82803; 83605; 83735; 84100; 84484; 85025; 85610; 93005; 96361; 96372; 96374; 99291; A9270-GY; C9113; J1630; J1650; J2060; J3411; J3475; J7030; J7050; J7120

== ENCOUNTER 2020-01-30 19:59 | Emergency (ER) | payer SELFPAY ==
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
== END 2020-01-30 20:35 ==
LOC: MW.ED 19:59
DX: F10.129 Alcohol abuse with intoxication, unspecified (principal)
CPT/HCPCS: 99282; 99284

== ENCOUNTER 2020-05-19 10:32 | Emergency (ER) | payer SELFPAY ==
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
[2020-05-19] MEDS ORDERED: Diphtheria,Pertussis(Acell),Tetanus Vaccine 0.5 ML Syringe IM ONE (11:14)
== END 2020-05-19 11:41 ==
LOC: MW.ED 10:32
DX: S51.812A Laceration without foreign body of left forearm, initial encounter (principal); S51.811A Laceration without foreign body of right forearm, initial encounter; F10.120 Alcohol abuse with intoxication, uncomplicated; Z23 Encounter for immunization; W26.0XXA Contact with knife, initial encounter; Y90.9 Presence of alcohol in blood, level not specified
CPT/HCPCS: 12002; 90471; 90715; 99282; 99284

== ENCOUNTER 2023-04-19 08:32 | Emergency (ER) | payer SELFPAY ==
[2023-04-19] MEDS ORDERED: PHENobarbital Sodium 130 MG/ML SDV IVPUSH ONE ×3 (08:33→09:42)
[2023-04-19] MEDS ORDERED: Sodium Chloride 0.9% 10 ML Syringe FLUSH PRN (08:34)
[2023-04-19] MEDS ORDERED: Sodium Chloride 0.9% 1,000 ML IV ONE (08:34)
[2023-04-19] MEDS ORDERED: Sodium Chloride 0.9% 2.5 ML Syringe FLUSH PRN (08:34)
[2023-04-19 09:03] LABS: BASOPHILS PERCENT AUTO 0.2 % (0.0-1.5); EOSINOPHILS PERCENT AUTO 0.1 % (0.0-7.0); HEMATOCRIT 42.2 % (38.0-50.0); HEMOGLOBIN 15.2 g/dL (13.0-17.0); LYMPHOCYTES ABSOLUTE AUTO 1.1 K/uL (0.6-2.4); LYMPHOCYTES PERCENT AUTO 9.1 % (16.0-40.0); MEAN CORPUSCULAR HEMOGLOBIN 32.2 pg (27.0-32.0); MEAN CORPUSCULAR VOLUME 89.4 fL (80.0-98.0); MONOCYTES ABSOLUTE AUTO 1.1 K/uL (0.0-0.8); MONOCYTES PERCENT AUTO 8.9 % (0.0-15.0); NEUTROPHILS ABSOLUTE AUTO 9.8 K/uL (1.4-5.7); NEUTROPHILS PERCENT AUTO 81.7 % (48.0-80.0); NRBC ABSOLUTE 0 K/uL; RED BLOOD CELL COUNT 4.72 M/uL (4.50-5.90); WHITE BLOOD CELL COUNT,WBC 11.94 K/uL (4.0-11.0)
[2023-04-19 09:18] LABS: PH,VENOUS 7.4 (7.31-7.41)
[2023-04-19 09:25] LABS: A/G RATIO 1.1 (0.9-1.6); ALANINE AMINOTRANSFERASE,ALT 132 IU/L (14-63); ALBUMIN 4.6 g/dL (3.4-5.0); ALKALINE PHOSPHATASE 112 U/L (46-116); ASPARTATE AMNIOTRANSFERASE,AST 108 IU/L (15-37); BILIRUBIN TOTAL 2.7 mg/dL (0.2-1.0); BLOOD UREA NITROGEN,BUN 13 mg/dL (7.0-18.0); CALCIUM 9.9 mg/dL (8.5-10.1); CARBON DIOXIDE,CO2 22.6 mmol/L (21.0-32.0); CHLORIDE,CL 92 mmol/L (98-107); CREATININE 1.6 mg/dL (0.8-1.3); ETHANOL BLOOD MEDICAL <3 mg/dL; GLUCOSE RANDOM 108 mg/dL (74-106); MAGNESIUM 1.1 mg/dL (1.8-2.4); PHOSPHORUS 2.5 mg/dL (2.6-4.7); POTASSIUM,K 2.6 mmol/L (3.5-5.1); PROTEIN TOTAL,TP 8.9 g/dL (6.4-8.2); SODIUM,NA 132 mmol/L (136-148)
[2023-04-19 09:26] LABS: ESTIMATED GFR 59 mL/min (>60)
[2023-04-19 09:27] LABS: PLATELET COUNT,PLT 68 K/uL (150-400)
[2023-04-19] MEDS ORDERED: PHENobarbitaL sodium 130 MG in Sodium Chloride 0.9% 100 ML IV ONE (09:28)
[2023-04-19] MEDS ORDERED: Potassium Chloride 100 ML IV SCH (09:30)
[2023-04-19] MEDS ORDERED: Magnesium Sulfate/Water 2 GM in Premix Bag 1 BAG IV ONE (09:30)
[2023-04-19 09:31] LABS: INR 1.18 (0.86-1.11)
[2023-04-19] MEDS ORDERED: Sodium Phosphate 15 mMole/5 ML SDV IV ONE (09:32)
[2023-04-19] MEDS ORDERED: Thiamine 200 MG/2 ML MDV IVPUSH ONE (09:38)
[2023-04-19] MEDS ORDERED: PHENobarbital Sodium 130 MG/ML SDV ONE (09:42)
[2023-04-19] MEDS ORDERED: Ketamine 500 mg/10 ML MDV IV ONE ×2 (09:45→10:16)
[2023-04-19] MEDS ORDERED: Succinylcholine 200 MG/10 ML MDV IV ONE (09:46)
[2023-04-19] MEDS ORDERED: Propofol 200 MG/20 ML SDV IVPUSH ONE ×4 (09:46→11:41)
[2023-04-19 09:55] LABS: LACTIC ACID 1.4 mmol/L (0.4-2.0)
[2023-04-19] MEDS ORDERED: POTASSIUM PHOSPHATES IV ONE (10:00)
[2023-04-19] MEDS: propofoL 100 ML IV SCH ×2 (10:00→13:17)
[2023-04-19] MEDS ORDERED: SODIUM CHLORIDE IV ONE (10:00)
[2023-04-19] MEDS ORDERED: fentaNYL 100 MCG/2 ML SDV IVPUSH PRN (10:13)
[2023-04-19] MEDS ORDERED: fentaNYL 50 MCG/ML SDV IVPUSH ONE ×2 (10:13→13:11)
[2023-04-19] MEDS ORDERED: Midazolam 5 MG/ML SDV ONE (10:18)
[2023-04-19] MEDS ORDERED: Midazolam 5 MG/ML 2 ML SDV IVPUSH ONE (10:19)
[2023-04-19] MEDS ORDERED: fentaNYL/Normal Saline 2,500 MCG in Premix Bag 1 BAG IV PRN (10:25)
[2023-04-19 10:51] LABS: AMPHETAMINES SCREEN, URINE NEGATIVE (CUTOFF=500); BARBITURATE SCREEN,URINE PRESUMPTIVE POSITIVE (CUTOFF=200); BENZODIAZEPINES SCREEN,URINE PRESUMPTIVE POSITIVE (CUTOFF=150); BUPRENORPHINE SCREEN,URINE NEGATIVE (CUTOFF=10); METHADONE SCREEN, URINE NEGATIVE (CUTOFF=200); METHAMPHETAMINES SCREEN, URINE NEGATIVE (CUTOFF=500); OXYCODONE SCREEN,URINE NEGATIVE (CUT0FF=100); PCP SCREEN,URINE NEGATIVE (CUTOFF=25); PROPOXYPHENE SCREEN,URINE NEGATIVE (CUTOFF=300); THC SCREEN,URINE 20 NG/ML NEGATIVE (CUTOFF=50)
[2023-04-19 11:49] LABS: BASE EXCESS ARTERIAL 1.2 (-2.0-3.0); BICARBONATE,ARTERIAL 21 mEq/L (22-26); PCO2 ARTERIAL 23 mmHG (35-45); PO2 ARTERIAL 191 mmHG (80-105)
== END 2023-04-19 13:45 ==
LOC: MW.ED 08:32
DX: F10.231 Alcohol dependence with withdrawal delirium (principal); J96.01 Acute respiratory failure with hypoxia; D69.6 Thrombocytopenia, unspecified; N17.9 Acute kidney failure, unspecified; E87.6 Hypokalemia; E83.42 Hypomagnesemia; E83.39 Other disorders of phosphorus metabolism; E87.1 Hypo-osmolality and hyponatremia; E86.0 Dehydration
CPT/HCPCS: 31500; 36415; 36600; 43752; 51702; 70450; 71045; 80053; 80305; 80307; 82803; 83605; 83735; 84100; 85025; 85610; 93005; 96361; 96365; 96366; 96367; 96368; 96375; 96376; 99291; 99292; J0330; J2250; J2560; J2704; J3010; J3360; J3411; J3475; J3490; J7030; J7050; 93010

== ENCOUNTER 2023-05-03 16:20 | Emergency (ER) | payer SELFPAY | END 2023-05-03 16:30 | disposition left against medical advice (07) | LOC: MW.ED 16:20 | DX: Z53.21 Procedure and treatment not carried out due to patient leaving prior to being seen by health care provider (principal) ==